=== PATIENT | male | born 2005 | race Caucasian/White ===

== ENCOUNTER 2023-06-01 15:10 | Outpatient (REF) | payer OTHER, SELFPAY ==
[2023-06-01 22:08] LABS: ALT 51 U/L (16-63)
[2023-06-01 23:03] LABS: Triglyceride 118 mg/dL (<150)
== END 2023-06-01 15:11 | disposition home or self-care (01) ==
LOC: LBN 15:10
PROVIDERS: PCP Internal Medicine; Visit Provider Student in an Organized Health Care Education/Training Program
DX: Z79.899 Other long term (current) drug therapy (principal)
CPT/HCPCS: 84460; 84478

== ENCOUNTER → 2024-01-02 01:05 | Outpatient (CLI) | payer OTHER, SELFPAY ==
--- NOTE | 2024-01-02 | DI.MRI_ITS ---
Exam(s) MR LOWER JOINT LT WO EXAM: MR LOWER JOINT LT WO CLINICAL HISTORY: DREANGEMENT LT KNEE, M23.91. TECHNIQUE: Multiplanar multisequence MRI was performed. COMPARISON: DX Knee 4 Views Left- [id number] from 12/17/2023 FINDINGS: BONES: There is no fracture or contusion pattern. JOINTS: Articular cartilage is unremarkable. There is a small amount of fluid in the joint space. TENDONS: Extensor mechanism: Unremarkable. Medial retinaculum: Unremarkable. Lateral retinaculum: Unremarkable. Popliteus: Unremarkable. MUSCLES: Unremarkable. MENISCI: The medial meniscus is unremarkable. The lateral meniscus is unremarkable. SOFT TISSUES: Unremarkable. LIGAMENTS: Anterior Cruciate: Unremarkable. Posterior Cruciate: Unremarkable. Medial Collateral:Unremarkable. Lateral Collateral: Unremarkable. OTHER: IMPRESSION: 1. No evidence of a meniscal or ligament tear. 2. No acute osseous abnormality. DATA REPOSITORY:
--- OUTSIDE RECORDS SUMMARY | 2024-01-02 01:07 | XMS_ITS | Clinical Summary ---
Author Organization [facility] Address [address] [place] [address] Care Team Providers Care Propagator Name Role Phone Unknown, Provider Primary Care Provider [phone] Social History Tobacco Use Types Packs/Day Years Used Date Smoking Tobacco: Never Assessed Sex and Gender Information Value Date Recorded Sex Assigned at Not on file Gender Identity Not on file Sexual Orientation Not on file Plan of Treatment Health Maintenance Due Date Last Done Comments Hepatitis C Screen 2003 Hepatitis B Vaccine (1 of 3 - 19+ 3-dose series) 07/31 COVID-19 Vaccine (2022-24 season) 2023 Care Teams Propagator Relationship Specialty Start Date End Date Unknown, Provider, PCP - General 01/02/17
--- OUTSIDE RECORDS SUMMARY | 2024-01-02 01:07 | XMS_ITS | Encounter Summary ---
Author Organization [facility] Address [address] [place] [address] Care Team Providers Care Blackjack Pit Boss Name Role Phone Unavailable Primary Care Provider Unavailabl e Encounter Details Date Type Department Care Team (Late st Contact Info) Description 03/09/2004 16:13 EDT Hospital Encounter [facility] - Other [address] [place] [address] Sacha Terrell MD [address] [place] [address] Social History Tobacco Use Types Packs/Day Years Used Date Smoking Tobacco: Never Assessed Sex and Gender Information Value Date Recorded Sex Assigned at Not on file Gender Identity Not on file Sexual Orientation Not on file documented as of this encounter Plan of Treatment Not on file documented as of this encounter Visit Diagnoses Not on filedocumented in this encounter
--- OUTSIDE RECORDS SUMMARY | 2024-01-02 01:07 | XMS_ITS | Continuity of Care Document ---
Author Organization [place] [facility] Address [address] [place] [address] Assessment No assessment recorded. Plan of Treatment Reminders Order Date Submit Date Provider Last Modified By Organization Details Last Modified Time Details Appointments None recorded. Lab None recorded. Referral orthopedic surgeon referral 2023 024 CHRIS Trimble MD, [address], [address], [place], [address], 16:15:29 Procedures None recorded. Surgeries None recorded. Imaging None recorded. Medication Orders None recorded. Patient TargetsNo targets recorded. Patient Instructions Encounter Date Encounter Id Patient Instructions Last Modified By Organization Details Last Modified Time 12/19/2023 [id number] Good luck, referral was done, I will make sure they fax it today Continue icing as needed [email or web address] Not available 12/19/2023 15:12:02 Reason for Referral Orthopedic Surgeon Referral for Pain of right knee joint Referring Physician: Mavis Jalloh, Family Medicine, Encounter Date: 12/19/2023 Problems Name Status Onset Date Resolution Date Notes Provider Name and Address Organization Details Recorded Time Allergic rhinitis Active 2004 Problem Code: J30.9; Problem Code Type: ICD-10; Not Available [facility] 3 05:48:58 Pyogenic granuloma of skin Completed 200410/21/2004 Problem Code: 686.1; Problem Code Type: ICD-9; Not Available [facility] 3 05:48:58 Ventricular septal defect Active 2003 Problem Code: Q21.0; Problem Code Type: ICD-10; Not Available [facility] 3 05:48:58 Acute conjunctiviti s of right eye Completed 201710/17/2017 10/04/2017 - Comments only - Allyson Sanchez [employer] - We will treat with TobraDex drops. Warm compresses. Frequent handwashing to avoid touching the other eye. He can stay home from school tomorrow if he would like. If not improving in the next 24 hours and certainly for screening, call the clinic. Patient and his mother good understanding and agreement with the plan of care. Problem Code: H10.31; Problem Code Type: ICD-10; Not Available [facility] 3 05:48:58 Acute conjunctiviti s of right eye Completed 201803/08/2019 02/08/2019 - Comments only - Allyson Sanchez [employer] - Will treat with erythromycin ointment. Because of the amount of swelling of the lower eyelid I am going to start him on Keflex. Concern for preseptal cellulitis. I have explained all of this to the patient and his mother. They will call tomorrow with an update. Recommend warm compresses several times a day. He will not go to school today but if feeling better we will go to school tomorrow. Problem Code: H10.31; Problem Code Type: ICD-10; Not Available [facility] 3 05:48:58 Acute conjunctiviti s Completed 201804/20/2019 Problem Code: H10.30; Problem Code Type: ICD-10; Not Available [facility] 3 05:48:58 Adolescent care Active 2019 Problem Code: Z00.3; Problem Code Type: ICD-10; Not Available [facility] 3 05:48:58 Derangement of right knee Active 201903/13/2020 - Comments only - Allyson Sanchez [employer] - Heriberto has been playing hockey since he was little. Likely has some overuse and trauma and possibly some scar tissue. He is not tender on today's exam. I am going to send her for an x-ray and refer to physical therapy. If not improving he will follow-up with me. Both the patient and his mother are in good understanding and agreement with the plan of care. Problem Code: M23.91; Problem Code Type: ICD-10; Not Available [facility] 3 05:48:58 History and physical examination, sports participation Active 2020 Problem Code: Z02.5; Problem Code Type: ICD-10; Not Available [facility] 3 05:48:59 Acne vulgaris Active 2022 Problem Code: L70.0; Problem Code Type: ICD-10; Not Available [facility] 3 05:48:59 Adult health examination Active 202201/06/2023 - Comments only - Mavis Jalloh [employer] - Healthy fit youg man in no distress. Currently playiing semi pro hockey, exercises regularly, sexually active, declines STI screening. Uses condoms every time. Immunizations up to date, will need flu shot in the fall. He does have farily significant nodular acne and would likely benefit from Accutane. Discussed starting antibiotic such as minocycline but he elects to wait until he sees dermatology. Recommend continue retinol cream and add benzyl peroxide, nightly moisturizer as well as sun screen daily. Problem Code: Z00.00; Problem Code Type: ICD-10; Not Available [facility] 3 05:48:59 Molluscum contagiosum infection Completed 201403/17/2016 Problem Code: B08.1; Problem Code Type: ICD-10; Not Available [facility] 3 05:48:59 Allergic rhinitis caused by pollen Completed 200403/02/2023 Problem Code: 477.0; Problem Code Type: ICD-9; Not Available [facility] 3 05:48:59 Eczema Completed 200303/17/2016 Not Available [facility] 3 05:48:59 Impetigo Active [address], [place], [address] , [facility] 4 10:21:14 Hordeolum externum of upper eyelid of right eye Active 2023 WATSON TERRAZAS PA-C [address], [place], [address] , [facility] 4 10:21:23 Paronychia of finger Active 2023 WATSON TERRAZAS PA-C [address], [place], [address] , [facility] 4 10:22:46 Pain of right knee joint Active 2023 MARIYA ARRINGTON [address], [place], [address] , [facility] 4 15:10:45 Problem Notes None recorded. Medical Equipment None Reported. Allergies Allergen ID Allergen Name Allergen Category Reaction Reaction Severity Criticality Documentation Date Start Date Code Code System Note Provider Name and Address Organization Details Recorded Time 76554 Medicinal product containin g penicilli n and acting as antibacte rial agent (product) medicatio n hives mild low 09/16/2023 06287 05 SNOMED Teresa Araujo RN [facility], [facility] 4 09:23:20 Medications Name Sig Start Date Stop Date Status Note LastModified by Organization Details LastModified Time isotretinoi n 40 mg capsule TAKE ONE CAPSULE BY MOUTH TWICE A DAY 12/18 completed Not Available Not Available Not Available prednisone 20 mg tablet TAKE 2 TABLETS BY MOUTH DAILY FOR 5 DAYS 09/15 completed Not Available Not Available Not Available Bactroban 2 % topical cream REAGAN AA TID 06/04 completed Not Available Not Available Not Available gentamicin 0.3 % eye drops 2 drops od tid for 5 days 03/12 completed Not Available Not Available Not Available cephalexin 500 mg capsule TAKE ONE CAPSULE BY MOUTH FOUR TIMES A DAY FOR 7 DAYS 12/18 completed Not Available Not Available Not Available erythromyci n 5 mg/gram (0.5 %) eye ointment APPLY TO AFFECTED AREA(S) OF EYE(S) FOUR TIMES A DAY FOR 7 DAYS 12/18 completed Not Available Not Available Not Available tobramycin 0.3 % eye drops 2 drops in the affected eye four times daily for 7 days 02/08 completed Not Available Not Available Not Available mupirocin 2 % topical ointment APPLY A SMALL AMOUNT TO AFFECTED AREA(S) THREE TIMES A DAY FOR 5 DAYS active Not Available Not Available No t Available epinephrine 0.3 mg/0.3 mL injection, auto-inject or PLEASE SEE ATTACHED FOR DETAILED DIRECTION S active Not Available Not Available No t Available ipratropium bromide 42 mcg (0.06 %) nasal spray [place] 1 spray into both nostrils four times a day 01/06 completed Not Available Not Available Not Available amoxicillin 875 mg-potassiu m clavulanate 125 mg tablet TAKE 1 TABLET BY MOUTH TWICE A DAY FOR 10 DAYS 09/15 completed Not Available Not Available Not Available Augmentin 875 mg tablet 1 TAB twice daily 02/19 completed Not Available Not Available Not Available Allergy Relief (loratadine ) 10 mg tablet 1 qd 2009 active Not Available Not Available Not Avai lable Flonase 2 Spr qd 02/16 completed Not Available Not Available Not Available sulfacetami de sodium 05/25 completed Not Available Not Available Not Available triamcinolo ne cream qday 07/11 completed Not Available Not Available Not Available Vitals Date Recorded Body height Body mass index (BMI) Body mass index (BMI) Percentile per age and sex Body weight Oxygen saturation Oxygen saturation in Arterial blood by Pulse oximetry Heart rate Systolic blood pressure Diastolic blood pressure Provider Name and Address Organization Details Last Updated DateTime 4 176.53 cm 25.9 kg/m2 76 % 78660.1 6 g 97 % 97 % 59 /min 116 mm[Hg] 68 mm[Hg] CESAR WONG MA [facility] 4 14:59:23 Social History Question Answer Notes LastModified by Organizat ion Details LastModified Time Tobacco Smoking Status Never Smoker Teresa Arajuo RN [facility], [facility] 09/16/2023 09:24:44 What Was The Date Of Your Most Recent Tobacco Screening? 09/16/2023 Information not available 09/16/2023 Has Tobacco Cessation Counseling Been Provided? Yes Information not available 09/16/2023 On What Date Was Tobacco Cessation Counseling Provided? 09/16/2023 Information not available 09/16/2023 Do You Or Have You Ever Used Any Other Forms Of Tobacco Or Nicotine? No Information not available 09/16/2023 Sex: Male Functional Status None recorded. Mental Status None recorded. Family History Relationship Description Onset Age of this Age Resolved Age Notes Unspecified Relation Family history unknown Relative: 'First Degree Blood Relative'; Medical History No medical history recorded. Immunizations Vaccine Type Date Status Provider Name and Address Organization Details Recorded Time MMR 08/12/2008 completed Not Available [facility] 05:51:24 MMR 09/02/2008 completed Not Available [facility] 05:51:24 DTaP, unspecified formulation 09/02/2008 completed Not Available [facility] 04/15/2023 05:51:24 DTaP, unspecified formulation 2003 completed Not Available [facility] 04/15/2023 05:51:24 DTaP, unspecified formulation 2003 completed Not Available [facility] 04/15/2023 05:51:24 DTaP, unspecified formulation 02/05/2004 completed Not Available [facility] 04/15/2023 05:51:24 DTaP, unspecified formulation 02/18/2005 completed Not Available [facility] 04/15/2023 05:51:24 meningococcal MCV4P 03/17/2016 completed Not Available [facility] 04/15/2023 05:51:25 meningococcal MCV4P 04/16/2020 completed Not Available [facility] 04/15/2023 05:51:25 Tdap 02/12/2014 completed Not Available [facility] 05:51:25 Influenza, split virus, quadrivalent, PF 07/11/2017 completed Not Available [facility] 04/15/2023 05:51:25 Influenza, split virus, quadrivalent, PF 04/13/2019 completed Not Available [facility] 04/15/2023 05:51:25 Pneumococcal Conjugate, unspecified formulation 08/09/2005 completed Not Available [facility] 04/15/2023 05:51:25 Pneumococcal Conjugate, unspecified formulation 2003 completed Not Available [facility] 04/15/2023 05:51:25 Pneumococcal Conjugate, unspecified formulation 2003 completed Not Available [facility] 04/15/2023 05:51:25 Pneumococcal Conjugate, unspecified formulation 02/05/2004 completed Not Available [facility] 04/15/2023 05:51:25 HPV9 07/11/2017 completed Not Available [facility] 05:51:25 HPV9 03/17/2016 completed Not Available [facility] 05:51:26 Hib, unspecified formulation 2003 completed Not Available [facility] 04/15/2023 05:51:26 Hib, unspecified formulation 11/11/2004 completed Not Available [facility] 04/15/2023 05:51:26 Hib, unspecified formulation 2003 completed Not Available [facility] 04/15/2023 05:51:26 Hib, unspecified formulation 02/05/2004 completed Not Available [facility] 04/15/2023 05:51:26 Influenza, MDCK, quadrivalent, preservative 04/16/2020 completed Not Available [facility] 04/15/2023 05:51:26 COVID-19, mRNA, LNP-S, PF, 30 mcg/0.3 mL dose 10/16/2020 completed Not Available [facility] 04/15/2023 05:51:26 COVID-19, mRNA, LNP-S, PF, 30 mcg/0.3 mL dose 11/06/2020 completed Not Available [facility] 04/15/2023 05:51:26 varicella 08/12/2004 completed Not Available [facility] 05:51:26 varicella 09/02/2008 completed Not Available [facility] 05:51:27 Hep B, unspecified formulation 2003 completed Not Available [facility] 04/15/2023 05:51:27 Hep B, unspecified formulation 2003 completed Not Available [facility] 04/15/2023 05:51:27 Hep B, unspecified formulation 02/05/2004 completed Not Available [facility] 04/15/2023 05:51:27 Hep A, ped/adol, 2 dose 07/11/2017 completed Not Available [facility] 04/15/2023 05:51:27 Hep A, ped/adol, 2 dose 04/13/2019 completed Not Available [facility] 04/15/2023 05:51:27 polio, unspecified formulation 06/26/2014 completed Not Available [facility] 04/15/2023 05:51:27 polio, unspecified formulation 2003 completed Not Available [facility] 04/15/2023 05:51:27 polio, unspecified formulation 2003 completed Not Available [facility] 04/15/2023 05:51:27 polio, unspecified formulation 02/05/2004 completed Not Available [facility] 04/15/2023 05:51:27 polio, unspecified formulation 02/18/2005 completed Not Available [facility] 04/15/2023 05:51:28 Past Encounters Encounter ID Performer Location Encounter Start Date Encounter Closed Date Diagnosis/Indication Diagnosis SNOMED-CT Code [id number] [facility] [address] [place] [address] 12/19/2023 14:52:40 12/19/2023 15:35:27 Pain of right knee joint [id number] Health Concerns Section Related Observation LastModified by Organization Detai ls LastModified Time None Recorded Concern Status LastModified by Organization Details LastModified Time None Recorded Payers Encounter Date Sequence Insurance Name Policy Number Policy Dum[place] Covered Member ID Dumas Member ID Guarantor Name 12/19/2023 1 [facility] ([id number]) [id number] Froy Gomez [id number] Francisco Javier Gomez Notes Date Note Type Note Provider Name and Address Organization Details Recorded Time 12/19/2023 text/html HPI Notes: left knee pain Left knee pain started on Tuesday after fall during hockey game. Fell weird and knee was bent funny it locked up. Couldn't walk on it initially, now can walk but is limping. Pain is 3/10, greatly improved. Has had mild swelling. has not been taking any pain medication Went to the ER, has been elevating and icing with relief Has an appointment with ortho tomorrow at [address], [place], [address], [facility], [facility]. 12/19/2023 15:25:53
--- OUTSIDE RECORDS SUMMARY | 2024-01-02 01:07 | XMS_ITS | Encounter Summary ---
Author Organization [facility] Address [address] [place] [address] Care Team Providers Care Test Lead Application Testing Name Role Phone Unavailable Primary Care Provider Unavailabl e Encounter Details Date Type Department Care Team (Late st Contact Info) Description 08/11/2006 Before [facility] Converted Visit ([facility] [address] [place] [address] Hector Rosales MD [address] [place] [phone] Social History Tobacco Use Types Packs/Day Years Used Date Smoking Tobacco: Never Assessed Sex and Gender Information Value Date Recorded Sex Assigned at Not on file Gender Identity Not on file Sexual Orientation Not on file documented as of this encounter Progress Notes * Hector Rosales MD - 04/10/2009 0239 EST PROGRESS/FOLLOWUP NOTE - 08/11/2006 - [facility] August 11, 2006 Ron Galeano M.D. [facility] [address] [place] [address] Dear Andrew, I saw Heriberto on August 11, 2006, in our [facility]. He is now a 1-year-old. I first saw him at6 days of age when he was referred for a murmur. He was found to have a moderate secundum atrial septal defect at that point. More recent examinations have suggested less impressive evidence of flow across his atrial septum. Since his last visit he has continued to be in excellent health. His parents feel that his energy level and activity are entirely normal. He does not seem to get unusually tired or short of breath with routine activity. He has had no chronic coughing, wheezing, or other respiratory symptoms. He has had no unexplained cyanosis, pallor, or loss of consciousness. His development continues to progress appropriately. His parents are delighted with how he is doing in a general sense. He returns for routine reevaluation. On physical examination today his height was 98.6 cm and his weight 16.2 kg. In general he was a healthy, cooperative youngster. His blood pressure was 118/52 in the right arm and 117/47 in the rightleg. His pulse was 100 and his resting respiratory rate was 24. His femoral pulses felt strong and his extremities were well-perfused. His abdomen was soft and nontender. His liver did not feel enlarg ed. No abdominal masses were appreciated. His precordium was quiet. His lungs sounded clear with symmetric aeration. His neck veins were not distended while sitting. His lips and nail beds appeared pink. He had no clubbing or peripheral edema. He had a normal first heart sound and a second heart sound that split normally and was of normal intensity. He had a grade 1/6 to 2/6 very low frequency ejection murmur at the left lower sternal border that I heard best with a mendieta. I did not appreciate adiastolic murmur. His electrocardiogram was normal. A followup two-dimensional echocardiogram and Doppler study was performed. His atrial septum was intact. There was no evidence of right ventricular volume overloading. No other abnormalities were identified. In summary, Heriberto's secundum atrial septal defect has closed spontaneously. No residual abnormalitieswere identified. I do not think he needs SBE prophylaxis or any other medications or restrictions. I have not scheduled Heriberto for a return appointment with us. His heart is structurally normal. This information was conveyed to his parents who were, of course, delighted. Please give me a call if you have any questions regarding today's visit or our recommendations. Thanks for sending Heriberto to us. Sincerely, Signed by Hector Rosales MD 08/17/2006 10:01 Giancarlo Rosales [facility] [phone] Prasad, [facility] [phone] Hector Rosales MD Division of Pediatric Cardiology [phone] - Hector Rosales MD A - PRAVIN Job ID: [id number] Document ID: [id number] cc: Ron Galeano MD documented in this encounter Plan of Treatment Not on file documented as of this encounter Visit Diagnoses Not on filedocumented in this encounter
--- OUTSIDE RECORDS SUMMARY | 2024-01-02 01:07 | XMS_ITS | Encounter Summary ---
Author Organization [facility] Address [address] [place] [address] Care Team Providers Care Press And Blow Machine Tender Name Role Phone Unavailable Primary Care Provider Unavailabl e Encounter Details Date Type Department Care Team (Late st Contact Info) Description 2003 10:21 [facility] Hospital Encounter [facility] [address] [place] [address] Hector Rosales MD [address] [place] [phone] Social History Tobacco Use Types Packs/Day [...]
--- OUTSIDE RECORDS SUMMARY | 2024-01-02 01:07 | XMS_ITS | Data Portability ---
Author Organization [facility] Address [address] [place] [address] Assessment No assessment recorded. Plan of Treatment Reminders Order Date Submit Date Provider Last Modified By Organization Details Last Modified Time Details Appointments None recorded. Lab venipunctu re - ALT, Triglyceri klever 2022 023 [email or web address] [facility] (Registration ), [address] [place] [address] , [place], [address], 4 07:37:47 Referral orthopedic surgeon referral 2023 024 CHRIS Trimble MD, [address], [address], [place], [address], 4 16:15:29 Procedures None recorded. Surgeries None recorded. Imaging None recorded. Medication Orders erythromyc in 5 mg/gram (0.5 %) eye ointment 2023 024 [facility], [address] [place], [address], 4 14:57:58 cephalexin 500 mg capsule 2023 024 [facility], [address] [place], [address], 4 14:57:50 mupirocin 2 % topical ointment 2023 024 [facility], [address] [place], [address], 10:24:21 Patient TargetsNo targets recorded. Patient Instructions Encounter Date Encounter Id Patient Instructions Last Modified By Organization Details Last Modified Time 06/01/2023 [id number] specimen collection & handling* [email or web address] Not available 06/01/2023 09:43:34 09/16/2023 [id number] 1. I have sent prescription for cephalexin and antibiotic you will take 4 times a day for the next 7 days for the infection of the finger. It can take 24 to 48 hours of being on this medicine before you see improvement. 2. I have sent in erythromycin ointment that you will use on the eye. It is important you get a tear free baby shampoo and do a lid cleanse 2-3 times a day and apply a warm compress and then instill the erythromycin ointment into the eye as well as on the eyelid itself. 3. For the infection in the nose and on the ear I have sent mupirocin ointment. I recommend you get in the shower and blow all the snot out of the nose and try to clear the past such as best as possible and then apply the mupirocin ointment. 4. I do expect these medication should improve symptoms. If not improving or having worsening please seek follow-up as needed. [email or web address] Not available 09/16/2023 10:25:29 12/19/2023 [id number] Good luck, referral was done, I will make sure they fax it today Continue icing as needed [email or web address] Not available 12/19/2023 15:12:02 Reason for Referral Orthopedic Surgeon Referral for Pain of right knee joint Referring Physician: Mavis Jalloh, Family Medicine, Encounter Date: 12/19/2023 Results Created Date Observation Date Name Description Value Unit Range Abnormal Flag LastModifiedBy Organization Detail LastModifiedTime 06/01/2006/01/2023 TRIGL YCERI DE triglyceride 118 mg/dL <150 Not Available [address], [place], [address] 06/01/2023 23:07:34 06/01/20 23 06/01/2023 ALT ALT 51 U/L 16-63 normal Not Available [facility] [address] [place], [address] 06/01/2023 23:07:34 06/01/20 23 06/01/2023 speci men colle ction & handl ing* Specimen collection and handling performed today: Yes Not Available [facility] [address], [place], [address], 06/01/2023 08:32:29 Result Notes None recorded. Problems Name Status Onset Date Resolution Date Notes Provider Name and Address Organization Details Recorded Time Allergic rhinitis Active 2004 Problem Code: J30.9; Problem Code Type: ICD-10; Not Available [facility] 3 05:48:58 Pyogenic granuloma of skin Completed 200410/21/2004 Problem Code: 686.1; Problem Code Type: ICD-9; Not Available [facility] 3 05:48:58 Ventricular septal defect Active 2003 Problem Code: Q21.0; Problem Code Type: ICD-10; Not Available [facility] 3 05:48:58 Acute conjunctiviti s of right eye Completed 201710/17/2017 10/04/2017 - Comments only - Allyson Sanchez TRUCK SPOTTER - We will treat with TobraDex drops. [...] H10.31; Problem Code Type: ICD-10; Not Available [facility] 3 05:48:58 Acute conjunctiviti s of right eye Completed 201803/08/2019 02/08/2019 - Comments only - Allyson Sanchez TRUCK SPOTTER - Will treat with erythromycin ointment. Because [...] H10.31; Problem Code Type: ICD-10; Not Available [facility] 3 05:48:58 Acute conjunctiviti s Completed 201804/20/2019 Problem Code: H10.30; Problem Code Type: ICD-10; Not Available [facility] 3 05:48:58 Adolescent care Active 2019 Problem Code: Z00.3; Problem Code Type: ICD-10; Not Available [facility] 3 05:48:58 Derangement of right knee Active 201903/13/2020 - Comments only - Allyson Sanchez TRUCK SPOTTER - Heriberto has been playing hockey since [...] M23.91; Problem Code Type: ICD-10; Not Available [facility] 3 05:48:58 History and physical examination, sports participation Active 2020 Problem Code: Z02.5; Problem Code Type: ICD-10; Not Available [facility] 3 05:48:59 Acne vulgaris Active 2022 Problem Code: L70.0; Problem Code Type: ICD-10; Not Available [facility] 3 05:48:59 Adult health examination Active 202201/06/2023 - Comments only - Mavis Jalloh TRUCK SPOTTER - Healthy fit youg man in no [...] Z00.00; Problem Code Type: ICD-10; Not Available [facility] 3 05:48:59 Molluscum contagiosum infection Completed 201403/17/2016 Problem Code: B08.1; Problem Code Type: ICD-10; Not Available [facility] 3 05:48:59 Allergic rhinitis caused by pollen Completed 200403/02/2023 Problem Code: 477.0; Problem Code Type: ICD-9; Not Available [facility] 3 05:48:59 Eczema Completed 200303/17/2016 Not Available [facility] 3 05:48:59 Impetigo Active [address], [facility] [address] , [facility] 4 10:21:14 Hordeolum externum of upper eyelid of right eye Active [address], [facility] [address] , [facility] 4 10:21:23 Paronychia of finger Active [address], [facility] [address] , [facility] 4 10:22:46 Pain of right knee joint Active [address], [facility] [address] , [facility] 4 15:10:45 Problem Notes None recorded. Medical Equipment None Reported. Allergies Allergen ID Allergen Name Allergen Category Reaction Reaction Severity Criticality Documentation Date Start Date Code Code System Note Provider Name and Address Organization Details Recorded Time 65233 Medicinal product containin g penicilli n and acting as antibacte rial agent (product) medicatio n hives mild low 09/16/2023 66283 05 SNOMED Teresa Araujo RN [facility], [place] - [facility]. 4 09:23:20 Medications Name Sig Start Date [...] bromide 42 mcg (0.06 %) nasal spray Kaufman 1 spray into both nostrils four times [...] Percentile per age and sex Body weight Body temperature Respiratory rate Oxygen saturation Oxygen saturation in Arterial blood by Pulse oximetry Heart rate Systolic blood pressure Diastolic blood pressure Provider Name and Address Organization Details Last Updated DateTime 4 176.53 cm 26.2 kg/m2 80 % 23897.6 3 g 97.7 [degF] 18 /min 96 % 96 % 69 /min 131 mm[Hg] 86 mm[Hg] Teresa Araujo RN [facility] 09:23:00 Date Recorded Body height Body mass index (BMI) Body mass index (BMI) Percentile per age and sex Body weight Oxygen saturation Oxygen saturation in Arterial blood by Pulse oximetry Heart rate Systolic blood pressure Diastolic blood pressure Provider Name and Address Organization Details Last Updated DateTime 176.53 cm 25.9 kg/m2 76 % 66356.1 6 g 97 % 97 % 59 /min 116 mm[Hg] 68 mm[Hg] CESAR WONG MA [facility] 14:59:23 Social History Question Answer Notes LastModified by Organizat ion Details LastModified Time Tobacco Smoking Status Never Smoker Teresa Araujo RN [facility], [facility] 09/16/2023 09:24:44 What Was The Date [...] Recorded Time MMR 08/12/2008 completed Not Available [facility] 05:51:24 MMR 09/02/2008 completed Not Available [facility] 05:51:24 DTaP, unspecified formulation 09/02/2008 completed Not Available [facility] 04/15/2023 05:51:24 DTaP, unspecified formulation 2003 completed Not Available [facility] 04/15/2023 05:51:24 DTaP, unspecified formulation 2003 completed Not Available [facility] 04/15/2023 05:51:24 DTaP, unspecified formulation 02/05/2004 completed Not Available [facility] 04/15/2023 05:51:24 DTaP, unspecified formulation 02/18/2005 completed Not Available [facility] 04/15/2023 05:51:24 meningococcal MCV4P 03/17/2016 completed Not Available [facility] 04/15/2023 05:51:25 meningococcal MCV4P 04/16/2020 completed Not Available [facility] 04/15/2023 05:51:25 Tdap 02/12/2014 completed Not Available [facility] 05:51:25 Influenza, split virus, quadrivalent, PF 07/11/2017 completed Not Available [facility] 04/15/2023 05:51:25 Influenza, split virus, quadrivalent, PF 04/13/2019 completed Not Available [facility] 04/15/2023 05:51:25 Pneumococcal Conjugate, unspecified formulation 08/09/2005 completed Not Available [facility] 04/15/2023 05:51:25 Pneumococcal Conjugate, unspecified formulation 2003 completed Not Available [facility] 04/15/2023 05:51:25 Pneumococcal Conjugate, unspecified formulation 2003 completed Not Available [facility] 04/15/2023 05:51:25 Pneumococcal Conjugate, unspecified formulation 02/05/2004 completed Not Available [facility] 04/15/2023 05:51:25 HPV9 07/11/2017 completed Not Available [facility] 05:51:25 HPV9 03/17/2016 completed Not Available [facility] 05:51:26 Hib, unspecified formulation 2003 completed Not Available [facility] 04/15/2023 05:51:26 Hib, unspecified formulation 11/11/2004 completed Not Available [facility] 04/15/2023 05:51:26 Hib, unspecified formulation 2003 completed Not Available [facility] 04/15/2023 05:51:26 Hib, unspecified formulation 02/05/2004 completed Not Available [facility] 04/15/2023 05:51:26 Influenza, MDCK, quadrivalent, preservative 04/16/2020 completed Not Available [facility] 04/15/2023 05:51:26 COVID-19, mRNA, LNP-S, PF, 30 mcg/0.3 mL dose 10/16/2020 completed Not Available [facility] 04/15/2023 05:51:26 COVID-19, mRNA, LNP-S, PF, 30 mcg/0.3 mL dose 11/06/2020 completed Not Available [facility] 04/15/2023 05:51:26 varicella 08/12/2004 completed Not Available [facility] 05:51:26 varicella 09/02/2008 completed Not Available [facility] 05:51:27 Hep B, unspecified formulation 2003 completed Not Available [facility] 04/15/2023 05:51:27 Hep B, unspecified formulation 2003 completed Not Available [facility] 04/15/2023 05:51:27 Hep B, unspecified formulation 02/05/2004 completed Not Available [facility] 04/15/2023 05:51:27 Hep A, ped/adol, 2 dose 07/11/2017 completed Not Available [facility] 04/15/2023 05:51:27 Hep A, ped/adol, 2 dose 04/13/2019 completed Not Available [facility] 04/15/2023 05:51:27 polio, unspecified formulation 06/26/2014 completed Not Available [facility] 04/15/2023 05:51:27 polio, unspecified formulation 2003 completed Not Available [facility] 04/15/2023 05:51:27 polio, unspecified formulation 2003 completed Not Available [facility] 04/15/2023 05:51:27 polio, unspecified formulation 02/05/2004 completed Not Available [facility] 04/15/2023 05:51:27 polio, unspecified formulation 02/18/2005 completed Not Available [facility] 04/15/2023 05:51:28 Past Encounters Encounter ID Performer Location Encounter Start Date Encounter Closed Date Diagnosis/Indication Diagnosis SNOMED-CT Code [id number] SHELLEY ELIZABETH RN [address] [address] 06/01/2023 08:22:07 06/01/2023 08:38:59 Adult health examination [id number] WATSON TERRAZAS PA-C [address] [address] 09/16/2023 09:14:16 09/16/2023 10:25:51 Impetigo 83378125 Hordeolum externum of upper eyelid of right eye 438291012708855 Paronychia of finger 444 450703 [id number] MARIYA ARRINGTON [address] [address] 12/19/2023 14:52:40 12/19/2023 15:35:27 Pain of right knee joint [id number] Health Concerns Section Related Observation LastModified by Organization Detai ls LastModified Time None Recorded Concern Status LastModified by Organization Details LastModified Time None Recorded Advance Directives Directive None Recorded Payers Encounter Date Sequence Insurance Name Policy Number Policy Dumas Covered Member ID Dumas Member ID Guarantor Name 06/01/2023 1 [facility] [id number] Froy Gomez [id number] Francisco Javier Gomez 09/16/2023 1 [facility] [id number] Froy Gomez [id number] Francisco Javier Gomez 12/19/2023 1 [facility] [id number] Froy Gomez [id number] Francisco Javier Gomez Notes Date Note Type Note Provider Name and Address Organization Details Recorded Time 09/16/2023 text/html HPI Notes: Santos lindquist is a 18-year-old male who presents with multiple complaints as below #1 right eye has had increased tearing for the last week and this morning he woke with eye crusted shut. There is a lesion on the upper eyelid which she states open spontaneously. He has not messed with it. He never wears contacts or glasses. He has never had problems with this eye previously. Does not feel the vision is affected. # 2 right fourth digit had a hangnail which he removed about 1 week ago. By the weekend it started to be red and swollen and tender. Has had some clear and yellow drainage. #3 I also noticed that patient has honey crusted lesions around the bottom of each nare and on his right ear. Patient tells me that the Accutane he has been on since April has been greatly drying out his skin and he has had troubles with dry skin around the nose and it does crust somewhat frequently. He tries to put Vaseline on it. It sometimes is painful. He otherwise feels well. He has not had recent fevers or chills. No nausea or vomiting. Eating and drinking per usual. Normal bowel bladder. Does not have cough or sore throat. WATSON TERRAZAS PA-C [address], [place], [address], [facility], [facility]. 09/16/2023 10:45:14 12/19/2023 text/html HPI Notes: left knee pain [...] [facility] [address], [place], [address], [facility], [facility]. 12/19/2023 15:25:53
--- OUTSIDE RECORDS SUMMARY | 2024-01-02 01:07 | XMS_ITS | Referral Summary ---
Author Organization [facility] Address [address] [place] [address] Care Team Providers Care Cattle Rancher Name Role Phone Unknown, Provider Primary Care Provider [phone] Social History Tobacco Use Types Packs/Day Years Used Date Smoking Tobacco: Never Assessed Sex and Gender Information Value Date Recorded Sex Assigned at Not on file Gender Identity Not on file Sexual Orientation Not on file Plan of Treatment Not on file Care Teams Cattle Rancher Relationship Specialty Start Date End Date Unknown, Provider, PCP - General 01/02/17
--- OUTSIDE RECORDS SUMMARY | 2024-01-02 01:07 | XMS_ITS | Encounter Summary ---
Author Organization [facility] Address [address] [place] [address] Care Team Providers Care Tank Charger Name Role Phone Unavailable Primary Care Provider Unavailabl e Encounter Details Date Type Department Care Team (Late st Contact Info) Description 2003 9:21 EDT Hospital Encounter [facility] [address] [place] [address] Sacha Terrell MD [address] [place] [address] Social History Tobacco Use Types [...]
--- OUTSIDE RECORDS SUMMARY | 2024-01-02 01:08 | XMS_ITS | Encounter Summary ---
Author Organization [facility] [place] [place] [address] Care Team Providers Care Rocket Motor Mechanic Name Role Phone Unavailable Primary Care Provider Unavailabl e Encounter Details Date Type Department Care Team (Latest Contact Info) Description 07/20/2023 3:20 PM EST TH Visit (TeleHealth) Dermatology at [facility] [address] [place] [address] Navid Amaro MD [facility] [address] [place] [address] Acne vulgaris (Primary Dx); High risk medication use Social History Tobacco Use Types Packs/Day Years Used Date Smoking Tobacco: Never Assessed Sex and Gender Information Value Date Recorded Sex Assigned at Male 02/24/2023 9:21 PM EDT Gender Identity Male 02/24/2023 9:21 PM EDT Sexual Orientation Straight 04/26/2023 8: 50 AM EST documented as of this encounter Progress Notes * Navid Amaro MD - 07/20/2023 3:20 PM EST Images from the original note were not included. DERMATOLOGY - ESTABLISHED PATIENT NOTE Date of service: 07/20/2023 Provider: Navid Amaro MD Who is the patient registered under? Dr. Eleno Gomez Preferred name: Heriberto Ipledge number: [id number] : 2005 CC: Acne follow-up, on isotretinoin Starting 4th month Date of isotretinoin initiation: 07/20/2023 Month 1: 40mg daily (1,200 mg) Month 2: 80mg daily (2400 mg) Month 3: 80 mg daily (2400 mg) Labs today (ALT 23, Trig 51) Month 4: starting 80mg daily Month 5: Cumulative dose to date: 6,000 mg (75 mg/kg) Weight: 80kg Okay to leave a detailed message: Yes HPI: Froy Gomez is a 17 y.o. established patient starting isotretinoin therapy, here today forfollow-up of acne. - Doing well overall. No major concerns today. - Acne is improved. Still getting new acne pimples this month? Only 1 - Cheilitis is tolerable. - Nosebleeds? No - he is wearing sunscreen daily as recommended. Recent sunburns? No - Has not started any new medications, and no interval changes to his health. - Not drinking alcohol and knows the risks of this while on isotretinoin. - Knows not to donate blood or take vitamin A supplements. Not sharing pills. - his mood has been good. Feeling depressed? No - Thoughts of self-harm? No - Knows to call immediately if he becomes depressed or has any thoughts of self-harm. - Joint pains/aches? No - Changes in bowel habits? No - Changes in vision? No Relevant Medical History: Acne Hx/Previous Treatments: Has tried over the counter benzoyl peroxide, SA, and retinoids Review of Systems: - General: Feels well overall. No significant or acute changes in constitutional, GI, skin, or psychiatric systems upon specific questioning. Examination: - Constitutional: Patient was alert, well-appearing and in no noticeable distress. - Skin exam of the face, neck, chest, back were normal with exception of the findings below: Notable findings/Assessment/Plan: #. Acne Vulgaris - cystic acne on the face and jaw - Continue Rx: isotretinoin 80 mg: Take two tablets by mouth daily, 30 day supply, no RF. - First Opinion number [id number] included in Rx instructions - Call with complications or concerns #. High risk medication - he has not noticed any concerning side effects and is abiding by the First Opinion guidelines. - Counseled regarding the importance of sun protection and avoidance - Reviewed ALT/TG from 06.14.2023 with values 23, 51 respectively, within normal limits RTC: 1 month for follow up of isotretinoin therapy or PRN if symptoms worsen or persist, scheduled upon exiting FLOR Dickens has performed the documentation for this encounter in the presence of andacting as a scribe for Navid Amaro MD. I performed the services which were documented by the scribe, and I agree with the accuracy of the documentation in this encounter. Reviewed and signed by: Navid Amaro MD Department of Dermatology [facility] Staff truck manager: Mally Olivo MD Department of Dermatology [facility] * Mally Olivo MD - 07/20/2023 3:20 PM EST I was the supervising physician working with the Dermatology resident, Navid Amaro MD, in the care of this Dermatology patient in person. For the purposes of billing, the resident provided the care. I have reviewed the encounter note details and level of service. MALLY OLIVO MD Staff Electric Brain Wave Equipment Mechanic Department of Dermatology [facility] documented in this encounter Plan of Treatment Not on file documented as of this encounter Visit Diagnoses Diagnosis Acne vulgaris- Primary Other acne High risk medication use Encounter for long-term (current) use of other medications documented in this encounter
--- OUTSIDE RECORDS SUMMARY | 2024-01-02 01:08 | XMS_ITS | Encounter Summary ---
Author Organization [facility] [place] [address] Care Team Providers Care Director For [employer] Name Role Phone Unavailable Primary Care Provider Unavailabl e Encounter Details Date Type Department Care Team (Late st Contact Info) Description 05/31/2023 Telephone Dermatology at [facility] [address] [place] [address] Navid Amaro MD [facility] [address] [place] [address] Social History Tobacco Use Types Packs/Day Years Used Date Smoking Tobacco: Never Assessed Sex and Gender Information Value Date Recorded Sex Assigned at Male 02/24/2023 9:21 PM EDT Gender Identity Male 02/24/2023 9:21 PM EDT Sexual Orientation Straight 04/26/2023 8: 50 AM EST documented as of this encounter Miscellaneous Notes * Telephone Encounter - Maddie Jaeger - 05/31/2023 9:19 AM EST Froy Gomez CALLED TO REQUEST THAT HIS LABS BE SENT TO THE [facility]. documented in this encounter Plan of Treatment Not on file documented as of this encounter Visit Diagnoses Not on filedocumented in this encounter
--- OUTSIDE RECORDS SUMMARY | 2024-01-02 01:08 | XMS_ITS | Encounter Summary ---
Author Organization [facility] [place] [address] Care Team Providers Care Sanitary Aide Name Role Phone Unavailable Primary Care Provider Unavailabl e Encounter Details Date Type Department Care Team (Late st Contact Info) Description 05/03/2023 6:45 PM EST Office Visit Dermatology at [facility] [address] [place] [address] Bertram Gongora MD [facility] [address] [place] [address] High risk medication use; Acne vulgaris Social History Tobacco Use Types Packs/Day Years Used Date Smoking Tobacco: Never Assessed Sex and Gender Information Value Date Recorded Sex Assigned at Male 02/24/2023 9:21 PM EDT Gender Identity Male 02/24/2023 9:21 PM EDT Sexual Orientation Straight 04/26/2023 8: 50 AM EST documented as of this encounter Progress Notes * Bertram Gongora MD - 05/03/2023 6:45 PM EST Images from the original note were not included. DERMATOLOGY - ESTABLISHED PATIENT NOTE Date of service: 05/03/2023 Provider: Bertram Gongora MD Who is the patient registered under? Dr. Eleno Gomez Preferred name: Heriberto Ipledge number: [id number] : 2005 CC: Acne follow-up, on isotretinoin Starting 2nd month Date of isotretinoin initiation: 05/03/2023 Month 1: 40mg daily (1,200 mg) Month 2: starting 80mg daily Month 3: Month 4: Month 5: Cumulative dose to date: 1,200 mg (15 mg/kg) Weight: 80kg Okay to leave a detailed message: Yes HPI: Froy Gomez is a 17 y.o. established patient starting isotretinoin therapy, here today forfollow-up of acne. - Doing well overall. No major concerns today. - Acne is improved. Still getting new acne pimples this month? Few - Cheilitis is tolerable. Using Chapstick multiple times daily - Nosebleeds? No - he is wearing [...] acne on the face and jaw - Start Rx: isotretinoin 80 mg: Take two tablets by mouth daily, 30 day supply, no RF. - [employer] number [id number] included in Rx instructions - Call with complications or concerns #. High risk medication - he has not noticed any concerning side effects and is abiding by the [employer] guidelines. - Counseled regarding the importance of sun protection and avoidance - Reviewed ALT/TG from 02/24/23 with values 30/125 respectively, within normal limits - Labs (ALT, TG) today, sent to [facility] to be obtained next month. Patient/parents will be informed of any abnormal results. RTC: 1 month for follow up of isotretinoin therapy or PRN if symptoms worsen or persist, scheduled upon exiting Note initiated by Maki Alvarez CMA. FLOR Dickens has performed the documentation for this encounter in the presence of andacting as a scribe for Bertram Gongora MD. I performed the services which were documented by the scribe, and I agree with the accuracy of the documentation in this encounter. Reviewed and signed by: Bertram Gongora MD Department of Dermatology [facility] Staff facilities coordinator: Dung Lin MD Department of Dermatology [facility] * Dung Lin MD - 05/03/2023 6:45 PM EST I was the supervising physician working with the Dermatology resident, Bertram Gongora MD, in the care of this Dermatology patient in person. For the purposes of billing, the resident provided the care. I have reviewed the encounter note details and level of service. Dung Lin MD Staff Chart Writer Department of Dermatology [facility] documented in this encounter Plan of Treatment Not on file documented as of this encounter Visit Diagnoses Diagnosis High risk medication use Encounter for long-term (current) use of other medications Acne vulgaris Other acne documented in this encounter
--- OUTSIDE RECORDS SUMMARY | 2024-01-02 01:08 | XMS_ITS | Encounter Summary ---
Author Organization [facility] Address [facility] [place] [address] Care Team Providers Care Pulper Tender Name Role Phone Unavailable Primary Care Provider Unavailabl e Encounter Details Date Type Department Care Team (Late st Contact Info) Description 06/14/2023 11:20 AM EST Office Visit Dermatology at [facility] [address] [place] [address] Navid Amaro MD [facility] [address] [address] Acne vulgaris (Primary Dx); High risk medication use Social History Tobacco Use Types Packs/Day Years Used Date Smoking Tobacco: Never Assessed Sex and Gender Information Value Date Recorded Sex Assigned at Male 02/24/2023 9:21 PM EDT Gender Identity Male 02/24/2023 9:21 PM EDT Sexual Orientation Straight 04/26/2023 8: 50 AM EST documented as of this encounter Progress Notes * Navid Amaro MD - 06/14/2023 11:20 AM EST Images from the original note were not included. DERMATOLOGY - ESTABLISHED PATIENT NOTE Date of service: 06/13/2023 Provider: Navid Amaro MD Who is the patient registered under? Dr. Eleno Gomez Preferred name: Heriberto Ipledge number: [id number] : 2005 CC: Acne follow-up, on isotretinoin Starting 3rd month Date of isotretinoin initiation: 06/13/2023 Month 1: 40mg daily (1,200 mg) Month 2: 80mg daily (2400 mg) Month 3: starting 80 mg daily Labs today (ALT, Trig) Month 4: Month 5: Cumulative dose to date: 3,600 mg (45 mg/kg) Weight: 80kg Okay to leave a [...] daily, 30 day supply, no RF. - [employer] number [phone] included in Rx instructions - Call with complications or concerns #. High risk medication - he has not noticed any concerning side effects and is abiding by the [employer] guidelines. - Counseled regarding the importance of sun protection and avoidance - Reviewed ALT/TG from 02/24/23 with values 30/125 respectively, within normal limits - Labs (ALT, TG) today for draw after visit . Patient/parents will be informed of any abnormal results. RTC: 1 month for follow up of isotretinoin therapy or PRN if symptoms worsen or persist, scheduled upon exiting Note initiated by FLOR Dickens. FLOR Dickens has performed the documentation for this encounter in the presence of andacting as a scribe for Navid Amaro MD. I performed the services which were documented by the scribe, and I agree with the accuracy of the documentation in this encounter. Reviewed and signed by: Navid Amaro MD Department of Dermatology [facility] Staff mixing plant dumper: Ange Ryan MD Department of Dermatology [facility] * Ange Ryan MD - 06/14/2023 11:20 AM EST I was the supervising physician working with the Dermatology resident, Navid Amaro MD, in the care of this Dermatology patient in person. For the purposes of billing, the resident provided the care. I have reviewed the encounter note details and level of service. ANGE RYAN MD Staff Instrumentation Designer Department of Dermatology [facility] documented in this encounter Plan of Treatment Not on file documented as of this encounter Results * Triglyceride (06/14/2023 11:50 AM EST) Triglycerides 51 mg/dL [facility] Comment: Average Risk/Lower Risk: <150 mg/dL Borderline High Risk: 150-199 mg/dL High Risk: 200-499 mg/dL Very High Risk: >ye=375 mg/dL Blood 06/14/2023 11:5 0 AM EST 06/14/2023 4:25 PM EST Narrative Resulting Agency Comment Spec In Lab Ange Ryan MD CHEMISTRY ORDERABLES Performing Organization Address [facility] Co de Phone Number [facility] [place] [address] * Alanine Aminotransferase (06/14/2023 11:50 AM EST) ALT 23 0 - 40 unit/L [facility] Blood 06/14/2023 11:5 0 AM EST 06/14/2023 4:25 PM EST Narrative Resulting Agency Comment Spec In Lab Ange Ryan MD CHEMISTRY ORDERABLES Performing Organization Address [facility] [place] [address] documented in this encounter Visit Diagnoses Diagnosis Acne vulgaris- Primary Other acne High risk medication use Encounter for long-term (current) use of other medications documented in this encounter
--- OUTSIDE RECORDS SUMMARY | 2024-01-02 01:08 | XMS_ITS | Encounter Summary ---
Author Organization [facility] Address [facility] [place] [address] Care Team Providers Care Cigarette Inspector Name Role Phone Unavailable Primary Care Provider Unavailabl e Reason for Visit * Reason Comments Medication Refill Encounter Details Date Type Department Care Team (Late st Contact Info) Description 05/05/2023 Refill Dermatology at [facility] [address] [place] [address] Bertram Gongora MD [facility] [address] [place] [address] High risk medication use; Acne vulgaris Social History Tobacco Use Types Packs/Day Years Used Date Smoking Tobacco: Never Assessed Sex and Gender Information Value Date Recorded Sex Assigned at Male 02/24/2023 9:21 PM EDT Gender Identity Male 02/24/2023 9:21 PM EDT Sexual Orientation Straight 04/26/2023 8: 50 AM EST documented as of this encounter Plan of Treatment Not on file documented as of this encounter Visit Diagnoses Diagnosis High risk medication use Encounter for long-term (current) use of other medications Acne vulgaris Other acne documented in this encounter
--- OUTSIDE RECORDS SUMMARY | 2024-01-02 01:08 | XMS_ITS | Encounter Summary ---
Author Organization [facility] [place] [address] Care Team Providers Care Ct Scan Special Procedures Technologist Name Role Phone Unavailable Primary Care Provider Unavailabl e Reason for Visit * Reason Onset Date Comments Medication Refill 05/05/2023 Encounter Details Date Type Department Care Team (Late st Contact Info) Description 05/05/2023 Refill Dermatology at [facility] [address] [place] [address] Bertram Gongora MD [facility] [address] [address] High risk medication use; Acne vulgaris Social History Tobacco Use Types Packs/Day Years Used Date Smoking Tobacco: Never Assessed Sex and Gender Information Value Date Recorded Sex Assigned at Male 02/24/2023 9:21 PM EDT Gender Identity Male 02/24/2023 9:21 PM EDT Sexual Orientation Straight 04/26/2023 8: 50 AM EST documented as of this encounter Miscellaneous Notes * Telephone Encounter - Heidi Rodriguez LPN - 05/05/2023 4:45 PM EST Pharmacy stated they did not get the accutane prescription new odrder pended to Dr Gongora documented in this encounter Plan of Treatment Not on file documented as of this encounter Visit Diagnoses Diagnosis High risk medication use Encounter for long-term (current) use of other medications Acne vulgaris Other acne documented in this encounter
--- OUTSIDE RECORDS SUMMARY | 2024-01-02 01:08 | XMS_ITS | Clinical Summary ---
Author Organization [facility] Address [facility] [place] [address] Care Team Providers Care Milk Driver Name Role Phone Unavailable Primary Care Provider Unavailabl e Medications Medication Sig Dispensed Refills Start Date End Date Status ISOtretinoin (Accutane) 40 mg capsuleIndications: Acne vulgaris Take 1 capsule by mouth daily 30 capsule 11/02/2023 Active tretinoin (RETIN-A) 0.025 % Cream Apply a pea sized amount to face each evening. Start gradually and build to nightly as tolerated 45 g 3 12/03/2023 Active Active Problems No known active problems Encounters Date Type Department Care Team Description 12/03/2023 8:40 AM EDT TH Visit (TeleHealth) Dermatology at [facility] [address] [place] [address] Zahra Hutton MD Acne vulgaris; High risk medication use 11/01/2023 Refill Dermatology at [facility] [address] [place] [address] Azul Moon MD Acne vulgaris 11/01/2023 Telephone Dermatology at [facility] [address] [place] [address] Azul Moon MD 10/26/2023 2:30 PM EDT TH Visit (TeleHealth) Dermatology at [facility] [address] [place] [address] Azul Moon MD Acne vulgaris; High risk medication use from Last 3 Months Social History Tobacco Use Types Packs/Day Years Used Date Smoking Tobacco: Never Assessed Sex and Gender Information Value Date Recorded Sex Assigned at Male 02/24/2023 9:21 PM EDT Gender Identity Male 02/24/2023 9:21 PM EDT Sexual Orientation Straight 04/26/2023 8: 50 AM EST Plan of Treatment Health Maintenance Due Date Last Done Comments HPV vaccine (1 - Male 3-dose series) 2018 HIV screen 2021 Hepatitis C Screening 2021 Hepatitis B vaccine (0-59 yrs) (1) 2022 Tdap adult 2022 Tetanus vaccine 2022 Covid-19 Vaccine (1 - 2022- season) 2023 Influenza (Flu) vaccine (1 o f 1 - Influenza standard series) 02/05/2024
--- OUTSIDE RECORDS SUMMARY | 2024-01-02 01:08 | XMS_ITS | Encounter Summary ---
Author Organization [facility] [place] [address] Care Team Providers Care Keno Writer Name Role Phone Unavailable Primary Care Provider Unavailabl e Encounter Details Date Type Department Care Team (Late st Contact Info) Description 06/16/2023 Telephone Dermatology at [facility] [address] [place] [address] Navid Amaro MD [facility] [address] [address] Social History Tobacco Use Types Packs/Day Years Used Date Smoking Tobacco: Never Assessed Sex and Gender Information Value Date Recorded Sex Assigned at Male 02/24/2023 9:21 PM EDT Gender Identity Male 02/24/2023 9:21 PM EDT Sexual Orientation Straight 04/26/2023 8: 50 AM EST documented as of this encounter Miscellaneous Notes * Telephone Encounter - Anya Bello - 06/16/2023 2:55 PM EST [facility]onnaconcepcion [facility]ON called to state that the : ISOtretinoin (Accutane) 40 mg capsule Is held up in Ipledge due to the Provider, Dr. Amaro. Please review and push it through. documented in this encounter Plan of Treatment Not on file documented as of this encounter Visit Diagnoses Not on filedocumented in this encounter
--- OUTSIDE RECORDS SUMMARY | 2024-01-02 01:08 | XMS_ITS | Encounter Summary ---
Author Organization [facility] [place] [address] Care Team Providers Care Veneer Slicing Machine Operator Name Role Phone Unavailable Primary Care Provider Unavailabl e Reason for Visit * Reason Comments Acne Encounter Details Date Type Department Care Team (Latest Contact Info) Description 09/23/2023 11:00 AM EDT TH Visit (TeleHealth) Dermatology at [facility] [address] [place] [address] Navid Amaro MD [facility] [address] [place] [address] Acne vulgaris (Primary Dx) Social History Tobacco Use Types Packs/Day Years Used Date Smoking Tobacco: Never Assessed Sex and Gender Information Value Date Recorded Sex Assigned at Male 02/24/2023 9:21 PM EDT Gender Identity Male 02/24/2023 9:21 PM EDT Sexual Orientation Straight 04/26/2023 8: 50 AM EST documented as of this encounter Progress Notes * Navid Amaro MD - 09/23/2023 11:00 AM EDT Images from the original note were not included. DERMATOLOGY - ESTABLISHED PATIENT NOTE Date of service: 09/23/2023 Provider: Navid Amaro MD Who is the patient registered under? Dr. Eleno Gomez Preferred name: Heriberto Ipledge number: [id number] : 2005 CC: Acne follow-up, on isotretinoin Starting 6th month Date of isotretinoin initiation: 09/23/2023 Month 1: 40mg daily (1,200 mg) Month 2: 80mg daily (2400 mg) Month 3: 80 mg daily (2400 mg) Labs today (ALT 23, Trig 51) Month 4: 80mg daily (2400 mg) Month 5: 80 mg daily (2400 mg) Month 6: starting 80 mg daily Cumulative dose to date: 10,800 mg (135 mg/kg) Weight: 80kg Okay to leave a detailed message: Yes HPI: Froy Gomez is a 18 y.o. established patient starting isotretinoin therapy, here today forfollow-up of acne. - Doing well overall. No major concerns today. - Acne is improved. Still getting new acne pimples this month? No - Cheilitis is tolerable. - Nosebleeds? No [...] - Continue Rx: isotretinoin 80 mg: Take a 40 mg tablet by mouth BID, 30 day supply, no RF. - [employer] number [phone] included in Rx instructions - Call with complications or concerns Patient can obtain their prescription from: September 23, 2023 - October 22, 2023 #. High risk medication - he has not noticed any concerning side effects and is abiding by the [employer] guidelines. - Counseled regarding the importance of sun protection and avoidance - Reviewed ALT/TG from 06.14.2023 with values 23, 51 respectively, within normal limits RTC: 1 month for follow up of isotretinoin therapy or PRN if symptoms worsen or persist (routed to for scheduling) Maribel Melendez [facility] has performed the documentation for this encounter in the presence of andacting as a scribe for Navid Amaro MD. I performed the services which were documented by the scribe, and I agree with the accuracy of the documentation in this encounter. Reviewed and signed by: Navid Amaro MD Department of Dermatology [facility] Staff fabricator foam rubber: Mikaela Ferrari MD Department of Dermatology [facility] * Mikaela Ferrari MD - 09/23/2023 11:00 AM EDT I was the supervising physician working with the Dermatology resident, Navid Amaro MD, in the care of this Dermatology patient virtually. For the purposes of billing, the resident provided the care. I have reviewed the encounter note details and level of service. Mikaela Ferrari MD Staff Laboratory Tester Department of Dermatology [facility] documented in this encounter Plan of Treatment Not on file documented as of this encounter Visit Diagnoses Diagnosis Acne vulgaris- Primary Other acne documented in this encounter
--- OUTSIDE RECORDS SUMMARY | 2024-01-02 01:08 | XMS_ITS | Encounter Summary ---
Author Organization [facility] [place] [address] Care Team Providers Care Territory Service Representative Name Role Phone Unavailable Primary Care Provider Unavailabl e Encounter Details Date Type Department Care Team (Late st Contact Info) Description 06/01/2023 Orders Only Dermatology at [facility] [address] [place] [address] Kali Kaye MD [facility] [address] [place] [address] High risk medication use Social History Tobacco Use Types Packs/Day Years Used Date Smoking Tobacco: Never Assessed Sex and Gender Information Value Date Recorded Sex Assigned at Male 02/24/2023 9:21 PM EDT Gender Identity Male 02/24/2023 9:21 PM EDT Sexual Orientation Straight 04/26/2023 8: 50 AM EST documented as of this encounter Progress Notes * Kali Kaye MD - 06/01/2023 4:58 PM EST Orders placed for ALT and TG to be faxed to [facility] per patient request documented in this encounter Plan of Treatment Scheduled Orders Name Type Priority Associated Diagnoses Orde r Schedule Alanine Aminotransferase Lab Routine High risk medication use Expected: 06/01/2023 (Approximate), Expires: 12/01/2023 Triglyceride Lab Routine High risk medication use Expected: 06/01/2023 (Approximate), Expires: 12/01/2023 documented as of this encounter Visit Diagnoses Diagnosis High risk medication use Encounter for long-term (current) use of other medications documented in this encounter
--- OUTSIDE RECORDS SUMMARY | 2024-01-02 01:08 | XMS_ITS | Encounter Summary ---
Author Organization [facility] [address] Care Team Providers Care Timber Sprinkler Name Role Phone Unavailable Primary Care Provider Unavailabl e Encounter Details Date Type Department Care Team (Latest Contact Info) Description 12/03/2023 8:40 AM EDT TH Visit (TeleHealth) Dermatology at [facility] [address] [place] [address] Zahra Hutton MD [facility] [address] [place] [address] Acne vulgaris; High risk medication use Social History Tobacco Use Types Packs/Day Years Used Date Smoking Tobacco: Never Assessed Sex and Gender Information Value Date Recorded Sex Assigned at Male 02/24/2023 9:21 PM EDT Gender Identity Male 02/24/2023 9:21 PM EDT Sexual Orientation Straight 04/26/2023 8: 50 AM EST documented as of this encounter Progress Notes * Zahra Hutton MD - 12/03/2023 8:40 AM EDT Images from the original note were not included. DEPARTMENT OF DERMATOLOGY ISOTRETINOIN FOLLOW-UP NOTE Date of service: 11/29/2023 Provider: Zahra Hutton MD Patient's preferred name Heriberto Mosquera to leave detailed message? Yes Dada number [phone] Initiation date 09/23/2023 Which provider is patient registered under in Dada? Dr. Johansen Prior Authorization required/approved? No PA required at start of first month Complicating factors? (i.e. mood disorder, Crohn's Disease, elevated lab values) None Contraception (methods/NA) N/A and N/A Isotretinoin History Month 1: 40mg daily (1,200 mg) Month 2: 80mg daily (2400 mg) Month 3: 80 mg daily (2400 mg) Labs today (ALT 23, Trig 51) Month 4: 80mg daily (2400 mg) Month 5: 80 mg daily (2400 mg) Month 6: 80 mg daily (2,400 mg) Month 7: 40 mg daily (1200 mg) Month 8: discontinuing Cumulative dose to date: 14,400 mg (180 mg/kg) Weight: 80kg HPI: Froy Gomez is a 18 y.o. established patient on isotretinoin therapy, here virtually todayto start their 8th month of isotretinoin. - Doing well overall. No major concerns today. - Acne is improved. Still getting new acne pimples this month? No - Interval changes to health? No - New prescription medications? No - New OTC medications/supplements? No - Cheilitis is tolerable. - Nosebleeds? No - Recent sunburns? No - Wearing sunscreen as recommended? Yes - Joint pains/aches? No - Changes in bowel habits? No - Headaches? No - Vision changes? No - Knows to call immediately if these symptoms develop? Yes - Mood has been excellent. - Feeling depressed? No - Thoughts of self-harm? No - Knows to call immediately if he becomes depressed or has any thoughts of self- harm? Yes - Patient is not drinking alcohol and knows not to drink alcohol? Yes - Patient is not donating blood and knows not to donate blood? Yes - Patient is not taking vitamin A supplements and knows not to take vitamin A supplements? Yes - Patient is not sharing pills and knows not to share pills? Yes Review of Systems: General: Feels well overall. No significant or acute changes in constitutional, GI, skin, or psychiatric systems upon specific questioning. Examination: TeleHealth examination: Skin exam of the face was performed via TeleHealth. Patient is aware that assessment may be limited by the TeleHealth video resolution. Notable findings/Assessment/Plan: 1. 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 Start gradually and build to nightly as tolerated 2. Cheilitis -- Reviewed the need for sunscreen lip balm. -- Recommended reapplying vaseline and lip emollients frequently throughout the day. 3. High Risk Medication -- Patient has not noticed any concerning side effects and is abiding by the iPledge guidelines. -- Patient counseled regarding the importance of sun protection and avoidance. -- Confirmed in Ipledge by: ROBERT ALMAGUER LPN RTC: 3 month acne/acne scarring follow up Note initiated by ROBERT ALMAGUER LPN. ROBERT ALMAGUER LPN has performed the documentation for this encounter in the presence of and acting as a scribe for Zahra Hutton MD I performed the services which were documented by the scribe, and I agree with the accuracy of the documentation in this encounter. Reviewed and signed by: Zahra Hutton MD Department of Dermatology [facility] documented in this encounter Plan of Treatment Not on file documented as of this encounter Visit Diagnoses Diagnosis Acne vulgaris Other acne High risk medication use Encounter for long-term (current) use of other medications documented in this encounter
--- OUTSIDE RECORDS SUMMARY | 2024-01-02 01:08 | XMS_ITS | Encounter Summary ---
Author Organization On License [facility] Address [facility] [place] [address] Care Team Providers Care Recordist Chief Name Role Phone Unavailable Primary Care Provider Unavailabl e Encounter Details Date Type Department Care Team (Late st Contact Info) Description 11/01/2023 Telephone Dermatology at [facility] [address] [place] [address] Azul Moon MD [facility] [address] LILIANA [place] [address] Social History Tobacco Use Types Packs/Day Years Used Date Smoking Tobacco: Never Assessed Sex and Gender Information Value Date Recorded Sex Assigned at Male 02/24/2023 9:21 PM EDT Gender Identity Male 02/24/2023 9:21 PM EDT Sexual Orientation Straight 04/26/2023 8: 50 AM EST documented as of this encounter Miscellaneous Notes * Telephone Encounter - Anya Bello - 11/01/2023 9:05 AM EDT Patient states that his script for: ISOtretinoin (Accutane) 40 mg capsule Was sent to the wrong pharmacy. Please send to: Marita Valdes [place], [place] documented in this encounter Plan of Treatment Not on file documented as of this encounter Visit Diagnoses Not on filedocumented in this encounter
--- OUTSIDE RECORDS SUMMARY | 2024-01-02 01:08 | XMS_ITS | Encounter Summary ---
Author Organization [facility] [place] [address] Care Team Providers Care Social And Political Studies Professor Name Role Phone Unavailable Primary Care Provider Unavailabl e Encounter Details Date Type Department Care Team (Latest Contact Info) Description 03/24/2023 Travel Social History Tobacco Use Types Packs/Day Years [...]
--- OUTSIDE RECORDS SUMMARY | 2024-01-02 01:08 | XMS_ITS | Encounter Summary ---
Author Organization [facility] Address [facility] [place] [address] Care Team Providers Care Machine Sizer Name Role Phone Unavailable Primary Care Provider Unavailabl e Encounter Details Date Type Department Care Team (Latest Contact Info) Description 08/22/2023 2:20 PM EDT TH Visit (TeleHealth) Dermatology at [facility] [address] [place] [address] Navid Amaro MD [facility] [address] L[place] [address] Acne vulgaris (Primary Dx) Social History Tobacco Use Types Packs/Day Years Used Date Smoking Tobacco: Never Assessed Sex and Gender Information Value Date Recorded Sex Assigned at Male 02/24/2023 9:21 PM EDT Gender Identity Male 02/24/2023 9:21 PM EDT Sexual Orientation Straight 04/26/2023 8: 50 AM EST documented as of this encounter Progress Notes * Navid Amaro MD - 08/22/2023 2:20 PM EDT Images from the original note were not included. DERMATOLOGY - ESTABLISHED PATIENT NOTE Date of service: 08/22/2023 Provider: Navid Amaro MD Who is the patient registered under? Dr. Eleno Gomez Preferred name: Heriberto Ipledge number: [id number] : 2005 CC: Acne follow-up, on isotretinoin Starting 5th month Date of isotretinoin initiation: 08/22/2023 Month 1: 40mg daily (1,200 mg) Month 2: 80mg daily (2400 mg) Month 3: 80 mg daily (2400 mg) Labs today (ALT 23, Trig 51) Month 4: 80mg daily (2400 mg) Month 5: starting 80 mg daily Cumulative dose to date: 8,400 mg (105 mg/kg) Weight: 80kg Okay to leave a detailed message: Yes HPI: Froy Gomez is a 18 y.o. established patient starting isotretinoin therapy, here today forfollow-up of acne. - Doing well overall. No major concerns today. - Acne is improved. Still getting new acne pimples this month? 1 new pimple in past month - Cheilitis is tolerable. - Nosebleeds? No [...] daily, 30 day supply, no RF. - [employer] number [phone] included in Rx instructions - Call with complications or concerns #. High risk medication - he has not noticed any concerning side effects and is abiding by the [employer] guidelines. - Counseled regarding the importance of sun protection and avoidance - Reviewed ALT/TG from 06.14.2023 with values 23, 51 respectively, within normal limits RTC: 1 month for follow up of isotretinoin therapy or PRN if symptoms worsen or persist (routed to for scheduling) FLOR Dickens has performed the documentation for this encounter in the presence of andacting as a scribe for Navid Amaro MD. I performed the services which were documented by the scribe, and I agree with the accuracy of the documentation in this encounter. Reviewed and signed by: Navid Amaro MD Department of Dermatology [facility] Staff oil well services dispatcher: Azul Moon MD Department of Dermatology [facility] * Azul Moon MD - 08/22/2023 2:20 PM EDT I was the supervising physician working with the Dermatology resident, Navid Amaro MD, in the care of this Dermatology patient in person. For the purposes of billing, the resident provided the care. I have reviewed the encounter note details and level of service. Azul Moon MD Staff Dispatch Manager Department of Dermatology [facility] documented in this encounter Plan of Treatment Not on file documented as of this encounter Visit Diagnoses Diagnosis Acne vulgaris- Primary Other acne documented in this encounter
--- OUTSIDE RECORDS SUMMARY | 2024-01-02 01:08 | XMS_ITS | Encounter Summary ---
Author Organization [facility] [place] [address] Care Team Providers Care Policy Loan Calculator Name Role Phone Unavailable Primary Care Provider Unavailabl e Encounter Details Date Type Department Care Team (Late st Contact Info) Description 02/03/2023 Telephone Dermatology at [facility] [address] [place] [address] Dung Lin MD [facility] DR LILIANA [place] [address] Social History Tobacco Use Types Packs/Day Years Used Date Smoking Tobacco: Never Assessed Sex and Gender Information Value Date Recorded Sex Assigned at Male 02/24/2023 9:21 PM EDT Gender Identity Male 02/24/2023 9:21 PM EDT Sexual Orientation Straight 04/26/2023 8: 50 AM EST documented as of this encounter Miscellaneous Notes * Telephone Encounter - Zahra Rodriguez - 02/03/2023 1:35 PM EDT I reached out to Froy this afternoon to help reschedule patient's visit to a sooner date with . We are needing to reschedule this visit from 02/22/23. Left v/m with my direct callback number. documented in this encounter Plan of Treatment Not on file documented as of this encounter Visit Diagnoses Not on filedocumented in this encounter
--- OUTSIDE RECORDS SUMMARY | 2024-01-02 01:08 | XMS_ITS | Encounter Summary ---
Author Organization [facility] [place] [address] Care Team Providers Care Treating Plant Supervisor Name Role Phone Unavailable Primary Care Provider Unavailabl e Encounter Details Date Type Department Care Team (Late st Contact Info) Description 03/24/2023 5:30 PM EDT Office Visit Dermatology at [facility] [address] [place] [address] Bertram Gongora MD [facility] DR LILIA[place] [address] Acne vulgaris (Primary Dx); High risk medication use Social History Tobacco Use Types Packs/Day Years Used Date Smoking Tobacco: Never Assessed Sex and Gender Information Value Date Recorded Sex Assigned at Male 02/24/2023 9:21 PM EDT Gender Identity Male 02/24/2023 9:21 PM EDT Sexual Orientation Straight 04/26/2023 8: 50 AM EST documented as of this encounter Progress Notes * Bertram Gongora MD - 03/24/2023 5:30 PM EDT Images from the original note were not included. DEPARTMENT OF DERMATOLOGY ISOTRETINOIN FOLLOW-UP NOTE Date of service: 03/24/2023 Provider: Bertram Gongora MD Patient's preferred name Heriberto Parents' names Okay to leave detailed message? Yes [employer] number [id number] Initiation date 02/24/23 Which provider is patient registered under in Attent[facility]? Dr. Johansen Prior Authorization required/approved? No PA required at start of first month Complicating factors? (i.e. mood disorder, Crohn's Disease, elevated lab values) None Contraception (methods/NA) None patient can not become Isotretinoin History Triglyceride: 125 ALT: 30 Month 1: Starting 40mg daily (1,200) Month 2: () Triglyceride: ALT: Month 3: () Month 4: Patient weight: 80kg Cumulative dose based on filled prescriptions: ( mg/kg) HPI: Froy Gomez is a 17 y.o. established patient on isotretinoin therapy, here in person todayto start their 2nd month of isotretinoin. - Doing well overall. No major concerns today. - Acne is improved. Still getting new acne pimples this month? N/a - Interval changes to health? N/a - New prescription medications? N/a - New OTC medications/supplements? N/a - Cheilitis is tolerable. - Nosebleeds? N/a - Recent sunburns? N/a - Wearing sunscreen as recommended? N/a - Joint pains/aches? N/a - Changes in bowel habits? N/a - Headaches? N/a - Vision changes? N/a - Knows to call immediately if these symptoms develop? N/a - Mood has been. N/a - Feeling depressed? N/a - Thoughts of self-harm? N/a - Knows to call immediately if he becomes depressed or has any thoughts of self- harm? N/a - Patient is not drinking alcohol and [...] or psychiatric systems upon specific questioning. Examination: A focused skin examination of the face, significant for the following: Notable findings/Assessment/Plan: 1. Severe Inflammatory Acne, -- Rx: Isotretinoin 40mg daily, 30 day supply, no refills. -- [employer] number [id number] included in Rx instructions. -- Patient instructed to call with complications or concerns. 2. Cheilitis -- Reviewed the need for sunscreen lip balm. -- Recommended reapplying vaseline and lip emollients frequently throughout the day. 3. High Risk Medication -- Patient has not noticed any concerning side effects and is abiding by the iPledge guidelines. -- Patient counseled regarding the importance of sun protection and avoidance. -- Labs (Triglyceride, ALT, beta hCG) reviewed, TG and ALT and CBC within normal limits from previous visit RTC: 1 month for accutane f/u or PRN if symptoms worsen or persist. Note initiated by Maki Alvarez CMA. Maki Alvarez CMA has performed the documentation for this encounter in the presence of and acting as a scribe for Bertram oGngora MD. I performed the services which were documented by the scribe, and I agree with the accuracy of the documentation in this encounter. Reviewed and signed by: Bertram Gongora MD Department of Dermatology [facility] Staff manufacturing supervisor 2nd shift: Dung Lin MD Department of Dermatology [facility] * Dung Lin MD - 03/24/2023 5:30 PM EDT I was the supervising physician working with Dermatology resident, in the Dermatology Clinic duringthis patient visit. The level of resident supervision for this patient visit was indirect supervision with direct supervision immediately available (definition: [facility] Policy Statement on Graduate Medical Education, Supervision of Graduate Medical Trainees). I was immediately available for questions and discussion regarding this visit. I have reviewed this encounter note details and level of service. Dung Lin MD, FAAD Staff Human Geography Instructor Department of Dermatoogy [facility] documented in this encounter Plan of Treatment Not on file documented as of this encounter Visit Diagnoses Diagnosis Acne vulgaris- Primary Other acne High risk medication use Encounter for long-term (current) use of other medications documented in this encounter
--- OUTSIDE RECORDS SUMMARY | 2024-01-02 01:08 | XMS_ITS | Encounter Summary ---
Author Organization [facility] [place] [address] Care Team Providers Care Generator Worker Name Role Phone Unavailable Primary Care Provider Unavailabl e Encounter Details Date Type Department Care Team (Latest Contact Info) Description 06/14/2023 Travel Social History Tobacco Use Types Packs/Day [...]
--- OUTSIDE RECORDS SUMMARY | 2024-01-02 01:08 | XMS_ITS | Encounter Summary ---
Author Organization [facility] Address [facility] [place] [address] Care Team Providers Care Mushroom Grower Name Role Phone Unavailable Primary Care Provider Unavailabl e Reason for Visit * Consultation (Priority 3) - Closed Specialty Diagnoses / Procedures Referred By Contac t Referred To Contact Dermatology Diagnoses Acne vulgaris Ron Galeano MD [address] [place] [address] [facility] Dermatology [address] [place] [address] Referral ID Status Reason Start Date Expiration Date Visits Re quested Visits Authorized [id number] Closed 01/07/2023 01/07/2024 1 1 Encounter Details Date Type Department Care Team (Late st Contact Info) Description 02/24/2023 4:20 PM EDT Office Visit Dermatology at [facility] [address] [place] [address] Dex Johansen MD [facility] DR LILIANA MCKEON[facility] [address] High risk medication use; Acne vulgaris Social History Tobacco Use Types Packs/Day Years Used Date Smoking Tobacco: Never Assessed Sex and Gender Information Value Date Recorded Sex Assigned at Male 02/24/2023 9:21 PM EDT Gender Identity Male 02/24/2023 9:21 PM EDT Sexual Orientation Straight 04/26/2023 8: 50 AM EST documented as of this encounter Progress Notes * Dex Johansen MD - 02/24/2023 4:20 PM EDT Images from the original note were not included. DEPARTMENT OF DERMATOLOGY Medical Dermatology Clinic Provider: Dex Johansen MD Patient's preferred name Froy Preferred contact method for results []Phone [x]myD-H []Letter Detailed phone message OK? ok Are there any other people with whom we may discuss your care? N/a Past Medical History Date, location, treatment Melanoma N/a Dysplastic nevi N/a SCC N/a BCC N/a AKs N/a UV Exposure & Protection N Other relevant past medical history N/a Family History Details Melanoma N/a NMSC N/a Other relevant family history N/a Social History Occupation: Hobbies: bull fiddle player Other: Pre-Procedure Screening Details Allergy to lidocaine, epinephrine, Dermabond, chlorhexidine, or adhesives N/a Bleeding disorder or blood thinners N/a Pacemaker, defibrillator, deep brain stimulator, cochlear implant N/a History of Present Illness: Froy Gomez is a 17 y.o. Patient is new and self-referred to the clinic for acne. Has tried over the counter benzoyl peroxide, SA, and retinoids. Patient notes that acne has been significantly debilitating to quality of life. Also notes significant scarring on cheeks. Medications: Reviewed in eD-H Allergies: Reviewed in eD-H Skin Examination: Focused skin examination of the Face, chest, and back was normal with the exception of the findingsbelow. Assessment/Plan #Severe Nodulocystic acne with scarring-scattered open and closed comedones on the face, neck, chest and back with some areas of PIH. Areas of ice pick scarring noted on cheeks. -Pt notes significantly decreased quality of life including avoiding social events due to severe anxiety -Discussed pathogenic factors including comedo formation, hormonal influences, and plugging, oil production, bacteria and irritation from bacterial breakdown of oil products. Reviewed some typical acne myths. Discussed treatment options and expectations -advised that will take approx. 3 months to see improvement with medications and may initially flair with topical retinoids Plan: Isotretinoin was discussed fully with the patient. It is a very effective drug to treat acne vulgaris but has significant potential side effects. Common side effects include skin, eye and lip dryness, mild nosebleeds, increased skin fragility, mild muscle aches, hair thinning in some patients, possible decreased night vision and increased sun sensitivity. Serious side effects include but are not limited to hepatic injury, dyslipidemia, severe drying of the mucous membranes, arthralgia, pseudotumor cerebri, and a controversial relationship to mood changes and depression. Isotretinoin is a known teratogen so must be avoided whileon this medication. We reviewed symptoms that should prompt the patient to stop taking the medication and notify our office, including: headaches, abdominal pain, nausea/vomiting/diarrhea, blood in stools, blurred vision, changes in mood (specifically depression), and yellowing of the skin or dark urine. The dose is typically 0.5-1 mg/kg/day for a duration of 5-9 months. We discussed taking medication with a meal containing healthy fats for optimal absorption of this fat soluble medication. I also emphasized the importance of sunscreen/sun protection and moisturizing face and lips regularly while on therapy. Reviewed rules of iPledge, which includes the need for monthly follow-up, 2 forms of control or strict abstinence, regular laboratory workup, avoidance of medication sharing, and avoidance of blood donation until one month after completion of therapy. Patient is aware of the need to notify usregarding any new medication during duration of therapy. Patient verbalized understanding and signed iPledge forms at the time of this visit. Labs today: Lab orders were placed for ALT and Triglycerides Plan to start Rx isotretinoin 40 mg daily at next visit Weight: 80 kg iPledge #: [id number] Figure 1 Photo(s) taken and charted with patient's verbal consent. Other: N/A RTC: 1 month follow up or PRN [x]Note routed to church secretary []Recall placed in scheduling system []Appointment scheduled at checkout Reviewed and signed by: Dex Johansen MD Dermatology [facility] * Dung Lin MD - 02/24/2023 4:20 PM EDT I was the supervising physician working with Dermatology resident, in the Dermatology Clinic duringthis patient visit. The level of resident supervision for this patient visit was with direct supervision (definition: [facility] Policy Statement on Graduate Medical Education, Supervision of Graduate Medical Trainees). I was immediately available for questions and discussion regarding this visit. I have reviewed his encounter note details and level of service. Dung iLn MD, FAAD Staff Dermatoogist Department of Dermatoogy [facility] documented in this encounter Plan of Treatment Not on file documented as of this encounter Results * Alanine Aminotransferase (02/24/2023 5:37 PM EDT) ALT 30 0 - 40 unit/L [facility] Blood 02/24/2023 5:37 PM EDT 02/24/2023 5:46 PM EDT Narrative Resulting Agency Comment Spec In Lab Dung Lin MD CHEMISTRY ORDERABLES [facility] [place] [address] * Triglyceride (02/24/2023 5:37 PM EDT) Triglycerides 125 mg/dL [facility] Comment: Average Risk/Lower Risk: <150 mg/dL Borderline High Risk: 150-199 mg/dL High Risk: 200-499 mg/dL Very High Risk: >et=216 mg/dL Blood 02/24/2023 5:37 PM EDT 02/24/2023 5:46 PM EDT Narrative Resulting Agency Comment Spec In Lab Dung Lin MD CHEMISTRY ORDERABLES [facility] [place] [address] documented in this encounter Visit Diagnoses Diagnosis High risk medication use Encounter for long-term (current) use of other medications Acne vulgaris Other acne documented in this encounter
--- OUTSIDE RECORDS SUMMARY | 2024-01-02 01:08 | XMS_ITS | Encounter Summary ---
Author Organization [facility] [place] [address] Care Team Providers Care Vegetable Packer Name Role Phone Unavailable Primary Care Provider Unavailabl e Reason for Visit * Reason Onset Date Comments Medication Refill 11/01/2023 Encounter Details Date Type Department Care Team (Late st Contact Info) Description 11/01/2023 Refill Dermatology at [facility] [address] [place] [address] Azul Moon MD [facility] [address] LIL[address] [place] [address] Acne vulgaris Social History Tobacco Use Types Packs/Day Years Used Date Smoking Tobacco: Never Assessed Sex and Gender Information Value Date Recorded Sex Assigned at Male 02/24/2023 9:21 PM EDT Gender Identity Male 02/24/2023 9:21 PM EDT Sexual Orientation Straight 04/26/2023 8: 50 AM EST documented as of this encounter Miscellaneous Notes * Telephone Encounter - Heidi Rodriguez LPN - 11/01/2023 10:01 AM EDT Isotretinoin needs to go to [facility]. Pened andres rodriguez order documented in this encounter Plan of Treatment Not on file documented as of this encounter Visit Diagnoses Diagnosis Acne vulgaris Other acne documented in this encounter
--- OUTSIDE RECORDS SUMMARY | 2024-01-02 01:08 | XMS_ITS | Encounter Summary ---
Author Organization [facility] [place] [address] Care Team Providers Care Sheepskin Pickler Name Role Phone Unavailable Primary Care Provider Unavailabl e Encounter Details Date Type Department Care Team (Late st Contact Info) Description 02/03/2023 Telephone Dermatology at [facility] [address] [place] [address] Dung Lin MD [facility] [address] LILIA[place] [address] Social History Tobacco Use Types Packs/Day Years Used Date Smoking Tobacco: Never Assessed Sex and Gender Information Value Date Recorded Sex Assigned at Male 02/24/2023 9:21 PM EDT Gender Identity Male 02/24/2023 9:21 PM EDT Sexual Orientation Straight 04/26/2023 8: 50 AM EST documented as of this encounter Miscellaneous Notes * Telephone Encounter - Leonor Mayfield - 02/03/2023 2:04 PM EDT Message: Pt called back per closed telephone encounter from 02/03/23 to get rescheduled. Please reach back out. Ask caller their first and last name and relationship to the patient: Froy Jason Best time to call back: Any Ok to leave a message: Yes Ok to send my- message: Unknown Offered Appointment: NA MA/Nurse/[place] contacted via: Message: NA Call: NA Pager: NA documented in this encounter Plan of Treatment Not on file documented as of this encounter Visit Diagnoses Not on filedocumented in this encounter
--- OUTSIDE RECORDS SUMMARY | 2024-01-02 01:08 | XMS_ITS | Encounter Summary ---
Author Organization [facility] [place] [address] Care Team Providers Care Spout Tender Name Role Phone Unavailable Primary Care Provider Unavailabl e Reason for Visit * Reason Onset Date Comments Medication Refill 03/25/2023 Encounter Details Date Type Department Care Team (Late st Contact Info) Description 03/25/2023 Refill Dermatology at [facility] [address] [place] [address] Bertram Gongora MD [facility] [address] [place] [address] High risk medication use; Acne vulgaris Social [...] Telephone Encounter - Heidi Rodriguez LPN - 03/25/2023 5:06 PM EDT Accutane resent to , pharmacy states they did not get it. documented in this encounter Plan of Treatment Not on file documented as of this encounter Visit Diagnoses Diagnosis High risk medication use Encounter for long-term (current) use of other medications Acne vulgaris Other acne documented in this encounter
--- OUTSIDE RECORDS SUMMARY | 2024-01-02 01:08 | XMS_ITS | Encounter Summary ---
[facility] [place] [address] Care Team Providers Care Vice President Of Marketing Name Role Phone Unavailable Primary Care Provider Unavailabl e Encounter Details Date Type Department Care Team (Latest Contact Info) Description 06/14/2023 11:40 AM EST Laboratory Appointment Lab at [facility] [address] [place] [id number] High risk medication use Social History Tobacco Use Types Packs/Day Years Used Date Smoking Tobacco: Never Assessed Sex and Gender Information Value Date Recorded Sex Assigned at Male 02/24/2023 9:21 PM EDT Gender Identity Male 02/24/2023 9:21 PM EDT Sexual Orientation Straight 04/26/2023 8: 50 AM EST documented as of this encounter Plan of Treatment Not on file documented as of this encounter Procedures Procedure Name Priority Date/Time Associated Diagnosis Comments HC VENIPUNCTURE Routine 06/14/2023 11:50 AM EST High risk medication use HC ALANINE AMINO TRANSFERASE (ALT) Routine 06/14/2023 11:50 AM EST High risk medication use documented in this encounter Results * Alanine Aminotransferase (06/14/2023 11:50 AM EST) ALT 23 0 - 40 unit/L [facility] Blood 06/14/2023 11:5 0 AM EST 06/14/2023 4:25 PM EST Narrative Resulting Agency Comment Spec In Lab Ange Holcomb MD CHEMISTRY ORDERABLES Performing Organization Address [facility] Co de Phone Number [facility] [address] * Triglyceride (06/14/2023 11:50 AM EST) Triglycerides 51 mg/dL [facility] Comment: Average Risk/Lower Risk: <150 mg/dL Borderline High Risk: 150-199 mg/dL High Risk: 200-499 mg/dL Very High Risk: >op=211 mg/dL Blood 06/14/2023 11:5 0 AM EST 06/14/2023 4:25 PM EST Narrative Resulting Agency Comment Spec In Lab Ange Holcomb MD CHEMISTRY ORDERABLES Performing Organization Address [facility] Co de Phone Number [facility] [place] [address] documented in this encounter Visit Diagnoses Diagnosis High risk medication use Encounter for long-term (current) use of other medications documented in this encounter
--- OUTSIDE RECORDS SUMMARY | 2024-01-02 01:08 | XMS_ITS | Encounter Summary ---
Author Organization [facility] Address [facility] [place] [address] Care Team Providers Care Professional Development Director Name Role Phone Unavailable Primary Care Provider Unavailabl e Encounter Details Date Type Department Care Team (Latest Contact Info) Description 10/26/2023 2:30 PM EDT TH Visit (TeleHealth) Dermatology at [facility] [address] [place] [address] Azul Moon MD [facility] [address] [facility]IL[place] [address] Acne vulgaris; High risk medication use Social History Tobacco Use Types Packs/Day Years Used Date Smoking Tobacco: Never Assessed Sex and Gender Information Value Date Recorded Sex Assigned at Male 02/24/2023 9:21 PM EDT Gender Identity Male 02/24/2023 9:21 PM EDT Sexual Orientation Straight 04/26/2023 8: 50 AM EST documented as of this encounter Patient Instructions * Patient Instructions* Tara Austin, [facility] - 10/26/2023 2:30 PM EDT Images from the original note were not included. Instructions for Use of Product: Apply to the skin twice daily as directed by a physician. Please be advised that this product may cause stinging or burning on initial application, this is normal! This is a reaction caused by a compromised skin barrier. Can be found at the following online stores: [employer]- https://www.NetEffect/dp/O97W9BKP1Z/ref=harryer_B0985PRM8B?_encoding=UTF8&psc=1 [employer]- https://www.CompBlue/ip/ReAguusn-Ctgukwfql-Vkvjept-Qsom-Ccwhtq-4-9-oz/5550815 06?ncsizy=Y0850&from=/search [employer]- https://www.Telemedicine Solutions LLC/p/ybwbyfbf-rbzmw-bjakth-pysocw-7-3zc/-/A-76954416?presele ao=11708528#lnk=sametab [employer]- https://Marketshot.AdWhirl/store/c/phimxmgq-lvgul-ajtajs-restoring-lotion---ceram ides-unscented/EA=384203062-swyonpx [employer]- https://Marketshot.PanAtlanta/shop/nmyxxehh-tjnxk-oblocfg-xujpsjw-idiky-xlzkvt-restoring-l jealt-xethasliv-nkfcly-7803107 [employer]- https://www.Keko/shop/ewlzjsnt-ffdcs-awhslhm-xndvvco-czmrs-qenwkw-restori yo-ebbnez-vqhecwsns-2-9-ay-8637982naoh-nfpjbz-venxusomj-7-6-ne-4490070 documented in this encounter Progress Notes * Azul Moon MD - 10/26/2023 2:30 PM EDT Images from the original note were not included. DEPARTMENT OF DERMATOLOGY ISOTRETINOIN FOLLOW-UP NOTE Date of service: 10/26/2023 Provider: Azul Moon MD Patient's preferred name Heriberto Okay to leave detailed message? Yes AppDirect number [id number] Initiation date 09/23/2023 Which provider is patient registered under in AppDirect? Dr. Johansen Prior Authorization required/approved? No PA [...] 80 mg daily (2,400 mg) Month 7: Starting 40 mg daily Cumulative dose to date: 13,200 mg (165 mg/kg) Weight: 80kg HPI: Froy Gomez is a 18 y.o. established patient on isotretinoin therapy, here virtually todayto start their 7th month of isotretinoin. - Doing well overall. [...] video resolution. Notable findings/Assessment/Plan: 1. Severe Inflammatory Acne, improving after 6 months of isotretinoin - -- Rx: Isotretinoin 40mg daily, 30 day supply, no refills. -- Tryoutsedge number [id number] included in Rx instructions. -- Patient instructed to call with complications or concerns. - Discussed adding Tretinoin at next appointment - Recommended starting OTC AmLactin 2. Cheilitis -- Reviewed the need for sunscreen lip balm. -- Recommended reapplying vaseline and lip emollients frequently throughout the day. 3. High Risk Medication -- Patient has not noticed any concerning side effects and is abiding by the iPledge guidelines. -- Patient counseled regarding the importance of sun protection and avoidance. RTC: 1 month for accutane f/u or PRN if symptoms worsen or persist. Note initiated by Cherise Valle CMA. FLOR Nick has performed the documentation for this encounter in the presence of and acting as a scribe for Azul Moon MD. I performed the services which were documented by the scribe, and I agree with the accuracy of the documentation in this encounter. Reviewed and signed by: Azul Moon MD Department of Dermatology [facility] documented in this encounter Plan of Treatment Not on file documented as of this encounter Visit Diagnoses Diagnosis Acne vulgaris Other acne High risk medication use Encounter for long-term (current) use of other medications documented in this encounter
--- OUTSIDE RECORDS SUMMARY | 2024-01-02 01:08 | XMS_ITS | Encounter Summary ---
Author Organization [place] [address] Care Team Providers Care Clinical Writer Name Role Phone Unavailable Primary Care Provider Unavailabl e Encounter Details Date Type Department Care Team (Latest Contact Info) Description 04/26/2023 Travel Social History Tobacco Use Types Packs/Day [...]
== END ==
PROVIDERS: PCP Internal Medicine; Visit Provider Nurse Practitioner Family
DX: M25.562 Pain in left knee (principal); M25.462 Effusion, left knee; M23.8X2 Other internal derangements of left knee
CPT/HCPCS: 73721

== ENCOUNTER 2024-09-06 09:43 | Day surgery (SDC) | payer OTHER, SELFPAY ==
[2024-09-06] VITALS (9 sets, daily range): BP systolic 112–143; BP diastolic 40–65; PULSE 52–63; RESP 12–16; TEMP 36–36.8; O2SAT 96–100; BMI 25.7
--- NOTE | 2024-09-06 07:13 | W.PM.DSUDISC ---
Date of service: 09/06/24 Discharge Plan Disposition Patient Disposition: Home Condition: Stable Discharge Details Attending Provider: Marcelo Becerra Primary Care Provider: Ron Galeano Home Meds and New Rx's Prescriptions: New naproxen 250 mg tablet 250 - 500 mg PO BID PRN (Reason: Moderate pain) Qty: 40 0RF aspirin 81 mg tablet,delayed release (DR/EC) 81 mg PO DAILY 14 Days Qty: 14 0RF oxycodone 5 mg tablet 5 - 10 mg PO Q4H PRN (Reason: Moderate to severe pain) Qty: 18 0RF Discharge Instructions Additional Instructions: Surgery: Left knee arthroscopy with partial lateral meniscectomy, extensive synovectomy (medial plica, suprapatellar adhesions, and intercondylar synovitis), and medial femoral condyle chondroplasty 09/06/24 Activity: Weightbearing as tolerated. Advance range of motion as comfort allows. No knee brace or crutches needed as soon as comfortable. Recommend avoiding sports, pivoting, and squatting for 6-8 weeks. A physical therapy prescription will be sent electronically to start in 3 weeks. Prescriptions: Aspirin 81 mg take 1 daily to prevent a blood clot for 14 days Naproxen 250 mg take 1-2 every 12 hours with a meal as needed for moderate pain Oxycodone 5 mg take 1-2 every 4-6 hours as needed for severe pain You may use uccy-uql-gtsiflp Tylenol (acetaminophen) as needed for mild pain. These pain medications may be taken all at once or in different combinations as needed. Also, recommend Colace (docusate) as a stool softener as surgery and pain medicine cause constipation. You may try taim-wap-acuhgru diphenhydramine (Benadryl) 25-50 mg nightly as a sleep aid Dressings: Leave dressing in place for 3 days. May then remove and leave open to air or cover incisions with Band-Aids. Leave the sticky Steri-Strips in place until they fall off or remove them after you shower. May shower after 5 days. Follow-up: 10-[address] Becerra You may take off the leg compression stockings this evening at home. You may also leave them on a few days longer if you have a history of leg swelling or edema. Let us know right away if you develop any redness, drainage, fevers, chest pain, or trouble breathing. Do not drink alcohol or drive for at least 24 hours after anesthesia. Please call the office during business hours with any questions or concerns. Stand Alone Forms: Anesthesia Discharge Inst., Mc Henriquez (DSU) Discharge Orders Discharge Orders: Discharge Order (Routine); Ordered 09/06/24 Ordered By: Sukhjinder George DS: Diagnosis Discharge Diagnosis (1) Discoid lateral meniscus of left knee: Status: Acute (2) Plica syndrome, right knee: Status: Acute
--- NOTE | 2024-09-06 07:20 | ROE_ITS ---
Operative Note Operative Note PRE-OP DIAGNOSIS: Right knee 1. Lateral meniscus tear 2. Para-meniscal cysts POST-OP DIAGNOSIS: same Right knee 1. Lateral meniscus tear 2. Para-meniscal cysts 3. 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 Synovitis PROCEDURE: Right knee 1. Partial lateral meniscectomy, CPT #52521 2. Extensive synovectomy, CPT #89610: Medial patellofemoral plica excision, suprapatellar lysis of adhesions, anterior and intercondylar synovectomy 3. Chondroplasty, CPT #59172: Medial femoral condyle SURGEON: Marcelo Becerra CLINICAL RADIOLOGIST: None None ANESTHESIA TYPE: Local By Surgeon and General LMA/ETT Refer to Anesthesia Record ESTIMATED BLOOD LOSS: 5 PATHOLOGY: none sent TOURNIQUET TIME: 0 Patient was transported to: PACU Patient's condition: stable Indications: Please see complete medical record for details. Findings: Exam under anesthesia: Full range of motion, no instability Arthroscopic findings: Significant large impinging medial patellofemoral plica, smaller suprapatellar synovial adhesions, indentation chondromalacia and loose superficial cartilage edge medial femoral condyle. Otherwise intact healthy medial compartment medial meniscus. Significant anterior and intercondylar synovitis. Intact ACL with possibly widened appearance. Discoid lateral meniscus tear with very mild lateral femoral condyle chondromalacia. Procedure Description: In the operating room, general anesthesia was induced. The patient was positioned supine on the operating room table. All bony prominences were well- padded. Preoperative antibiotics were administered. The knee was prepped and draped in the usual sterile fashion. The correct patient, procedure, and side of the procedure were all verified prior to incision. Exam under anesthesia was performed. 20 cc of 0.25% bupivacaine containing epinephrine was infiltrated about the planned anteromedial and anterolateral knee arthroscopy portals as well as the lateral joint line. The portals were established and a complete diagnostic arthroscopy was performed with relevant findings detailed above. The large medial patellofemoral plica was nearly impinging in the patellofemoral joint as well as indenting the medial femoral condyle in flexion. It was transected using meniscus biters, excised use mechanical shaver, and hemostasis and smoothed margins achieved with the radiofrequency ablator. The shaver and ablator were then used to remove smaller suprapatellar adhesions. The shaver and ablator had to be used to resect and debride significant anterior synovitis followed by intercondylar synovitis in order to recreate more normal knee joint spaces. The torpedo shaver was then used on a superficial 5 x 8 mm approximate area of cartilage irregularity on the medial distal aspect of the medial femoral condyle to trim the torn flap and establish a smooth base, which was adjacent to the area of plica indentation. The lateral meniscus then showed a complex redundant meniscus tear consistent with a partial lateral discoid meniscus. There was redundant anterior horn tissue, complex but largely horizontal tearing at the mid body to posterior horn junction, and more horizontal tearing of the posterior horn. Fortunately the majority the tearing involve the abnormal excess meniscus. Using a combination of hand instruments including meniscal biters and a power shaver and working through the anteromedial and anterolateral portals in a meticulous fashion, the meniscus was debrided of all torn abnormal tissue to a stable margin. Care was taken to preserve as much meniscus tissue was possible especially in the deeper part of the tear as long as the surrounding meniscus had achieved a more normal structure. The meniscal remnant was probed and found to have a stable margin, stable root, and no other tears The knee was copiously irrigated with arthroscopic fluid until there was a clear effluent before being drained of all fluid. The anteromedial and anterolateral portals were closed in 3-0 Monocryl in a buried interrupted fashion. A 21-gauge needle was then use through a single site laterally to trephinate the parameniscal tissues and potential cyst area and then inject additional 10 cc of 0.25% bupivacaine with epinephrine. Mastisol, Steri-Strips, and 4 x 4 gauze were applied over the incisions. The knee was then wrapped gently with an PATTIE comressive bandage. The patient awoke from anesthesia without complication and was transferred to the recovery room in a stable condition. Date of Procedure: 09/06/24
[2024-09-06] MEDS: Lactated Ringers 1,000 ML 30 ML IV (10:20)
--- NOTE | 2024-09-06 10:46 | W.ANESPRE ---
General Info Date of Service Date Performed: 09/06/24 Height: 5 ft 10 in Weight: 81.2 kg Body Mass Index (BMI): 25.7 Surgical Procedure: Operation Date: 09/06/24 10:40 Proposed Procedure Side Surgeon p Knee Arthroscopy w Lateral Meniscus Repair vs Partial Lateral Meniscectomy Right Marcelo Becerra MD Meds Allergies and Home Medications Allergies Allergy/AdvReac Type Severity Reaction Status Date / Time Penicillins Allergy Intermediate Hives Verified 09/06/24 09:53 Home Medication ?Medication ?Instructions ?Recorded aspirin 81 mg tablet,delayed 81 mg PO DAILY Prevent blood clot 09/06/24 release 14 days #14 tabs naproxen 250 mg tablet 250 - 500 mg (1 - 2 x 250 mg) PO 09/06/24 BID PRN Moderate pain #40 tabs oxycodone 5 mg tablet 5 - 10 mg (1 - 2 x 5 mg) PO Q4H 09/06/24 PRN Moderate to severe pain #18 tabs Current Visit Medications: Current Medications Generic Name Dose Route Start Last Admin Trade Name Freq PRN Reason Stop Dose Admin Ringer's Solution 1,000 mls @ 30 mls/hr 09/06/24 06:00 09/06/24 10:20 IV 09/06/24 23:59 30 mls/hr INFUSION JEAN-PAUL Administration Cefazolin Sodium/Dextrose 2 gm in 50 mls @ 100 mls/hr 09/06/24 06:00 Ancef Duplex IVPB 09/06/24 23:59 PREOP JEAN-PAUL Tranexamic Acid/Sodium Chloride 1,000 mg in 100 mls @ 600 mls/hr 09/06/24 06:00 IVPB 09/06/24 23:59 PREOP JEAN-PAUL IV Miscellaneous Supplies 1 each 09/06/24 06:00 Iv Access IV 09/06/24 23:59 DIRECTED JEAN-PAUL Oxycodone HCl 0 mg 09/06/24 07:12 Oxycodone 5 Mg Tab PO 10/06/24 07:11 Q3H PRN PRN Pain Sodium Chloride 0 ml 09/06/24 06:00 Normal Saline Flush 10 Ml Syr IV 09/06/24 23:59 PRN PRN Sodium Chloride 0 ml 09/06/24 06:00 Normal Saline 10 Ml Vial IJ 09/06/24 23:59 DIRECTED PRN Sterile Water 0 ml 09/06/24 06:00 Water,Injection,Sterile 10 Ml Vial IJ 09/06/24 23:59 DIRECTED PRN PFSH Active Problems Active Problems: Problem Status Onset Code Discoid lateral meniscus of left knee Acute Q68.6 Tobacco Smoking/Tobacco Use Status: Never Passive smoking exposure: No Alcohol Alcohol Intake: current Alcohol intake frequency: a few times a month Alcohol type: beer Substance Use Substance use: Socially Substance use type: marijuana Details: Marijuana used last night 09/05/24 Vital Signs and Lab Results Vital Signs Most Recent Vital Signs in EMR: Most Recent Vital Signs Temp Pulse Resp BP Pulse Ox 36.8 C 63 16 126/56 L 99 09/06/24 09:54 09/06/24 09:54 09/06/24 09:54 09/06/24 09:54 09/06/24 09:54 Lab Results Blood Type / Crossmatch: No Data to Display Complete Blood Count: No Data to Display Complete Metabolic Panel: No Data to Display Liver Function Panel: No Data to Display Coagulation Panel: No Data to Display Cardiac Panel: No Data to Display Arterial Blood Gas: No Data to Display Venous Blood Gas: No Data to Display Pancreas Panel: No Data to Display Thyroid Panel: No Data to Display Infectious Disease: No Data to Display Blood Cultures: No Data to Display Toxicology Panel: No Data to Display Anesthesia Assessment and Plan Anesthesia History Personal History: No History of General Anesthesia Family History: No Family History of Anesthesia Complications Exercise Tolerance Exercise Tolerance: Metabolic Equivalents>4 Pertinent Negatives Pertinent Negatives: No Symptoms of GERD, No Major Cardiovascular Symptoms or Complaints, No Major Pulmonary Symptoms or Complaints and No History of CVA/TIA Cardiac & Pulmonary Exam Cardiac Exam: Normal S1/S2 Heart Sounds Pulmonary Exam: Clear Bilateral Breath Sounds Implantable Cardiac Device Does patient have a Pacemaker or an ICD?: No Airway Exam Known Difficult Airway: No Mallampati Class: 1 Mouth Opening: Normal (> 3cm) Thyromental Distance: Greater than 3 cm Neck Range of Motion: Full ROM Neck Circumference: Normal Teeth Condition: Normal Dentition ASA Classification ASA Score: ASA 1 Emergency Case?: No NPO Status NPO Status: NPO Clears >2 hours, Solids >8 hours Anesthesia Plan Resuscitation Status: Full Code Anesthesia Technique: General Anesthesia Airway Planned: LMA Monitors Used: Standard Monitors
[2024-09-06] MEDS: ceFAZolin 2 GM/50 ML BAG IVPB (12:24)
[2024-09-06] MEDS: TRANEXAMIC ACID/SOD. CHL. 1,000 MG/100 ML BAG 600 MG IVPB (12:32)
[2024-09-06] MEDS: Bupivacaine 0.25% Pres-Free W/EPI 30 ML VIAL (13:00)
[2024-09-06] MEDS: EPINEPHrine 10 MG/10 ML ML (13:00)
--- NOTE | 2024-09-06 15:02 | W.ANESPOSTOP ---
Postoperative Evaluation Date, Time and Location Date Performed: 09/06/24 Time Performed: 15:03 Patient Location: Day Surgery Unit Vital Signs Most Recent Imported Vital Signs: Most Recent Vital Signs Temp Pulse Resp BP Pulse Ox 36.4 C L 53 L 12 112/45 L 99 09/06/24 14:20 09/06/24 14:21 09/06/24 14:21 09/06/24 14:21 09/06/24 14:21 Pain Score Most Recent Pain Score: Most Recent Pain Score Pain Level 0 09/06/24 09:54 Assessment Mental Status: Awake (Alert & Oriented to Patient Baseline) Airway and Respiratory Function: Patent airway with normal (patient baseline) respiratory exam Cardiovascular Function: Hemodynamically Stable Hydration Status: Adequately Hydrated Nausea & Vomiting: No Nausea or Vomiting Pain: Pain is tolerable per patient Peripheral Nerve Block: Patient did not receive a nerve block
== END 2024-09-06 16:15 | disposition home or self-care (01) ==
LOC: SUR 09:44
PROVIDERS: PCP Internal Medicine; Visit Provider Student in an Organized Health Care Education/Training Program
PROC: (CPT 29876; principal; 2024-09-06 10:30)
DX: Q68.6 Discoid meniscus (principal); M67.51 Plica syndrome, right knee; M94.261 Chondromalacia, right knee; S83.281A Other tear of lateral meniscus, current injury, right knee, initial encounter; M65.161 Other infective (teno)synovitis, right knee
CPT/HCPCS: 29876; 29881; J0690; J1885; J2003; J2270; J2405; J2704